=== PATIENT | female | born 1970 | race Caucasian/White ===

== ENCOUNTER 2018-04-16 10:26 | Emergency (ER) | payer BC ==
[2018-04-16] MEDS ORDERED: DICYCLOMINE 10 MG/ML 2 ML AMP IM STA (10:54)
[2018-04-16] MEDS ORDERED: SODIUM CHLORIDE 0.9% 1,000 ML IV STA (10:54)
[2018-04-16] MEDS ORDERED: KETOROLAC 30 MG/ML 1 ML VIAL IVP STA (10:54)
--- NOTE | 2018-04-16 10:54 | ED ---
General Adult HPI - General Chief complaint: Abdominal Pain Stated complaint: abdominal pain Time Seen by Provider: 04/16/18 10:33 Source: patient, family, RN notes reviewed Mode of arrival: ambulatory Limitations: no limitations - History of Present Illness Initial comments: 47-year-old female with a past medical history of hypertension presents to the emergency department for a chief complaint of abdominal pain 2 days. Patient states the pain started yesterday and worsened today. Patient describes the pain as a constant, cramping pain that comes in "waves." Patient states the pain is generalized in her mid abdomen as well as upper abdomen. She states her abdomen feels somewhat distended. Patient admits to nausea but denies vomiting. Patient states she has had multiple bouts of diarrhea over the past 2 days with the last time being 2 hours ago. Patient states she is passing gas normally. Patient states this occurred again about one week ago and lasted for 2 days. Patient states at that time he was after she ate the meal containing broccoli. Patient states this has occurred about 3 times over the past few years as well. Patient denies any surgical or medical abdominal history. Patient went to urgent care today and they directed her here to the emergency department. She did receive Zofran at the urgent care. Patient has no other complaints at this time including shortness of breath, chest pain, abdominal pain, nausea or vomiting, headache, or visual changes. - Related Data Home Medications Medication Instructions Recorded Confirmed Levothyroxine Sodium [Synthroid] 175 mcg PO DAILY 04/16/18 04/16/18 Lisinopril [Prinivil] 10 mg PO DAILY 04/16/18 04/16/18 Previous Rx's Medication Instructions Recorded Ciprofloxacin HCl [Cipro] 500 mg PO Q12HR 10 Days tablet 04/16/18 Ondansetron HCl [Zofran] 4 mg PO Q8HR PRN #14 tablet 04/16/18 metroNIDAZOLE [Flagyl] 500 mg PO TID 10 Days tab 04/16/18 Allergies Allergy/AdvReac Type Severity Reaction Status Date / Time erythromycin base Allergy Unknown Verified 04/16/18 10:36 Iodinated Contrast- Oral and Allergy Unknown Verified 04/16/18 10:36 IV Dye Penicillins Allergy Unknown Verified 04/16/18 10:36 sulfamethoxazole Allergy Unknown Verified 04/16/18 10:36 [From Bactrim] trimethoprim [From Bactrim] Allergy Unknown Verified 04/16/18 10:36 Review of Systems ROS Statement: Those systems with pertinent positive or pertinent negative responses have been documented in the HPI. ROS Other: All systems not noted in ROS Statement are negative. Past Medical History Past Medical History: Hypertension, Thyroid Disorder History of Any Multi-Drug Resistant Organisms: None Reported Past Surgical History: Tubal Ligation Additional Past Surgical History / Comment(s): laminectomyx2, shoulder Past Psychological History: No Psychological Hx Reported Smoking Status: Former smoker Past Alcohol Use History: None Reported Past Drug Use History: None Reported General Exam Limitations: no limitations General appearance: alert, in no apparent distress Head exam: Present: atraumatic, normocephalic, normal inspection Eye exam: Present: normal appearance. Absent: scleral icterus, conjunctival injection ENT exam: Present: normal exam, mucous membranes moist Neck exam: Present: normal inspection, full ROM. Absent: tenderness, meningismus, lymphadenopathy Respiratory exam: Present: normal lung sounds bilaterally. Absent: respiratory distress, wheezes, rales, rhonchi, stridor Cardiovascular Exam: Present: regular rate, normal rhythm, normal heart sounds. Absent: systolic murmur, diastolic murmur, rubs, gallop, clicks GI/Abdominal exam: Present: soft, tenderness (LLQ, RUQ and LUQ tenderness.), normal bowel sounds, other (negative douglas sign, negative obturator and psoas signs). Absent: distended, guarding, rebound, rigid Neurological exam: Present: alert, oriented X3, CN II-XII intact Psychiatric exam: Present: normal affect, normal mood Course Vital Signs 04/16/18 10:29 Temperature 97.4 F L Pulse Rate 88 Respiratory 20 Rate Blood Pressure 130/83 O2 Sat by Pulse 98 Oximetry Medical Decision Making - Medical Decision Making 47-year-old female presents to the emergency department for a chief complaint of abdominal pain 2 days. Patient states similar pain also occurred for 2 days one week ago. Patient describes the pain as a constant spasming pain in her mid abdomen as well as upper abdomen. Patient also admits to nausea but denies vomiting. Patient admits to diarrhea. Patient is afebrile on presentation. On exam patient has left lower quadrant, left upper quadrant, right upper quadrant tenderness. White blood cell count 12.5. Total bilirubin 1.5. CBC and CMP otherwise unremarkable. Amylase and lipase within normal limits. Urine does not show any sign of infection. HCG negative. CT shows inflammatory change the lower pelvis adjacent to the sigmoid colon suggestive of acute diverticulitis. There is a 1.8 cm cystic structure in the left adnexa most likely related to ovarian cyst rather than small abscess. On reevaluation patient is feeling much better. Pain is decreased and patient's nausea had subsided. Discussed with patient and she would like to treat outpatient with antibiotics. She will be given Cipro and Flagyl. She was given dose here in the emergency department. She will follow up with primary care in 1-2 days. She will return if she has any worsening symptoms such as fevers or worsening pain which she is aware of. - Lab Data Result diagrams: 04/16/18 10:50 04/16/18 10:50 Lab Results 04/16/18 04/16/18 04/16/18 Range/Units 10:50 10:50 12:33 WBC 12.5 H (3.8-10.6) k/uL RBC 4.74 (3.80-5.40) m/uL Hgb 13.3 (11.4-16.0) gm/dL Hct 41.8 (34.0-46.0) % MCV 88.0 (80.0-100.0) fL MCH 28.1 (25.0-35.0) pg MCHC 31.9 (31.0-37.0) g/dL RDW 13.5 (11.5-15.5) % Plt Count 244 (150-450) k/uL Neutrophils % 85 % Lymphocytes % 8 % Monocytes % 6 % Eosinophils % 0 % Basophils % 0 % Neutrophils # 10.6 H (1.3-7.7) k/uL Lymphocytes # 1.0 (1.0-4.8) k/uL Monocytes # 0.8 (0-1.0) k/uL Eosinophils # 0.1 (0-0.7) k/uL Basophils # 0.0 (0-0.2) k/uL Sodium 139 (137-145) mmol/L Potassium 4.3 (3.5-5.1) mmol/L Chloride 106 (98-107) mmol/L Carbon Dioxide 22 (22-30) mmol/L Anion Gap 11 mmol/L BUN 11 (7-17) mg/dL Creatinine 0.79 (0.52-1.04) mg/dL Est GFR (CKD-EPI)AfAm >90 (>60 ml/min/1.73 sqM) Est GFR (CKD-EPI)NonAf 89 (>60 ml/min/1.73 sqM) Glucose 106 H (74-99) mg/dL Calcium 9.2 (8.4-10.2) mg/dL Total Bilirubin 1.5 H (0.2-1.3) mg/dL AST 27 (14-36) U/L ALT 28 (9-52) U/L Alkaline Phosphatase 72 (38-126) U/L Total Protein 7.5 (6.3-8.2) g/dL Albumin 4.2 (3.5-5.0) g/dL Amylase 46 (30-110) U/L Lipase 96 (23-300) U/L Urine Color Yellow Urine Appearance Clear (Clear) Urine pH 5.0 (5.0-8.0) Ur Specific [place] 1.014 (1.001-1.035) Urine Protein Negative (Negative) Urine Glucose (UA) Negative (Negative) Urine Ketones Negative (Negative) Urine Blood Negative (Negative) Urine Nitrite Negative (Negative) Urine Bilirubin Negative (Negative) Urine Urobilinogen <2.0 (<2.0) mg/dL Ur Leukocyte Esterase Negative (Negative) Urine HCG, Qual (Not Detectd) 04/16/18 Range/Units 12:33 WBC (3.8-10.6) k/uL RBC (3.80-5.40) m/uL Hgb (11.4-16.0) gm/dL Hct (34.0-46.0) % MCV (80.0-100.0) fL MCH (25.0-35.0) pg MCHC (31.0-37.0) g/dL RDW (11.5-15.5) % Plt Count (150-450) k/uL Neutrophils % % Lymphocytes % % Monocytes % % Eosinophils % % Basophils % % Neutrophils # (1.3-7.7) k/uL Lymphocytes # (1.0-4.8) k/uL Monocytes # (0-1.0) k/uL Eosinophils # (0-0.7) k/uL Basophils # (0-0.2) k/uL Sodium (137-145) mmol/L Potassium (3.5-5.1) mmol/L Chloride (98-107) mmol/L Carbon Dioxide (22-30) mmol/L Anion Gap mmol/L BUN (7-17) mg/dL Creatinine (0.52-1.04) mg/dL Est GFR (CKD-EPI)AfAm (>60 ml/min/1.73 sqM) Est GFR (CKD-EPI)NonAf (>60 ml/min/1.73 sqM) Glucose (74-99) mg/dL Calcium (8.4-10.2) mg/dL Total Bilirubin (0.2-1.3) mg/dL AST (14-36) U/L ALT (9-52) U/L Alkaline Phosphatase (38-126) U/L Total Protein (6.3-8.2) g/dL Albumin (3.5-5.0) g/dL Amylase (30-110) U/L Lipase (23-300) U/L Urine Color Urine Appearance (Clear) Urine pH (5.0-8.0) Ur Specific [place] (1.001-1.035) Urine Protein (Negative) Urine Glucose (UA) (Negative) Urine Ketones (Negative) Urine Blood (Negative) Urine Nitrite (Negative) Urine Bilirubin (Negative) Urine Urobilinogen (<2.0) mg/dL Ur Leukocyte Esterase (Negative) Urine HCG, Qual Not Detected (Not Detectd) Disposition Clinical Impression: Diverticulitis Disposition: HOME SELF-CARE Condition: Good Instructions: Diverticulitis (ED) Additional Instructions: Please take antibiotics as directed. Take Zofran for nausea as needed. Follow- up with primary care in 1-2 days. Return if you have any worsening symptoms. Prescriptions: Ciprofloxacin HCl [Cipro] 500 mg PO Q12HR 10 Days tablet metroNIDAZOLE [Flagyl] 500 mg PO TID 10 Days tab Ondansetron HCl [Zofran] 4 mg PO Q8HR PRN #14 tablet PRN Reason: Nausea Is patient prescribed a controlled substance at d/c from ED?: No Referrals: Abel Ocampo DO [Primary Care Provider] - 1-2 days Time of Disposition: 12:59
[2018-04-16] MEDS ORDERED: FAMOTIDINE 20 MG/2 ML VIAL IV STA (11:13)
[2018-04-16] MEDS ORDERED: diphenhydrAMINE 50 MG/ML 1 ML VIAL IVP STA (11:14)
[2018-04-16] MEDS ORDERED: methylPREDNISolone SOD SUCCI 125 MG/2 ML VIAL IV STA (11:15)
[2018-04-16 11:24] LABS: ALT 28 U/L (9-52); AST 27 U/L (14-36); Albumin 4.2 g/dL (3.5-5.0); Alkaline Phosphatase 72 U/L (38-126); Amylase 46 U/L (30-110); Anion Gap 11 mmol/L; Blood Urea Nitrogen 11 mg/dL (7-17); Calcium 9.2 mg/dL (8.4-10.2); Carbon Dioxide 22 mmol/L (22-30); Chloride 106 mmol/L (98-107); Glucose 106 mg/dL (74-99); Lipase 96 U/L (23-300); Potassium 4.3 mmol/L (3.5-5.1); Sodium 139 mmol/L (137-145); Total Bilirubin 1.5 mg/dL (0.2-1.3); Total Protein 7.5 g/dL (6.3-8.2)
[2018-04-16 11:27] LABS: Basophils % (A) 0 %; Eosinophils # (A) 0.1 k/uL (0-0.7); Eosinophils % (A) 0 %; HCT 41.8 % (34.0-46.0); HGB 13.3 gm/dL (11.4-16.0); Lymphocytes % (A) 8 %; MCH 28.1 pg (25.0-35.0); MCHC 31.9 g/dL (31.0-37.0); Mean Platelet Volume 6.3; Monocytes # (A) 0.8 k/uL (0-1.0); Monocytes % (A) 6 %; Neutrophils # (A) 10.6 k/uL (1.3-7.7); Neutrophils % (A) 85 %; Platelet Count 244 k/uL (150-450); RBC 4.74 m/uL (3.80-5.40); RDW 13.5 % (11.5-15.5); WBC 12.5 k/uL (3.8-10.6)
[2018-04-16] MEDS ORDERED: METOCLOPRAMIDE 5 MG/ML 2 ML VIAL IVP STA (12:33)
--- NOTE | 2018-04-16 12:33 | CT ---
EXAMINATION TYPE: CT abdomen pelvis w con DATE OF EXAM: 04/16/2018 COMPARISON: None HISTORY: Upper abd pain, nausea CT DLP: 1788.7 mGycm Automated exposure control for dose reduction was used. CONTRAST: CT scan of the abdomen pelvis is performed with IV Contrast, patient injected with 100 mL of Isovue 3 00. FINDINGS- exam limited by motion artifact. LUNG BASES-groundglass changes posteriorly most typical of atelectasis.. LIVER/GB- No gross abnormality is appreciated. PANCREAS- No gross abnormality is seen. SPLEEN- No gross abnormality is seen. ADRENALS- No gross abnormality is seen. KIDNEYS/BLADDER- no hydronephrosis nephrolithiasis or renal mass. BOWEL-the appendix is not seen. There is inflammatory change within the lower pelvis with a large div erticula in a pattern suggestive of acute diverticulitis. Trace amount of fluid is seen in the pelvis . LYMPH NODES- No greater than 1cm abdominal or pelvic lymph nodes areappreciated. OSSEOUS STRUCTURES-degenerative change of the vertebral column. Sclerotic density L4 nonspecific.. OTHER- cystic structure in the pelvis likely related to ovarian cyst rather than abscess could be co rrelated with pelvic ultrasound. Fat-containing periumbilical hernia noted. IMPRESSION- 1. Inflammatory change in the lower pelvis adjacent to the sigmoid colon suggestive of acute divertic ulitis. 1.8 cm cystic structure in the left adnexa most likely related to ovarian cyst rather than sm all abscess and could be followed on a short-term basis or confirmation.
[2018-04-16 12:41] LABS: Appearance,Urine Clear (Clear); Bilirubin,Urine Negative (Negative); Blood,Urine Negative (Negative); Color,Urine Yellow; Glucose,Urine (UA) Negative (Negative); Ketones,Urine Negative (Negative); Leukocyte Esterase,Urine Negative (Negative); Nitrite,Urine Negative (Negative); Protein,Urine Negative (Negative); Specific Gravity,Urine 1.014 (1.001-1.035); Urobilinogen,Urine <2.0 mg/dL (<2.0)
[2018-04-16] MEDS ORDERED: CIPROFLOXACIN HCL 500 MG TAB PO STA (13:10)
[2018-04-16] MEDS ORDERED: metroNIDAZOLE 500 MG TAB PO STA (13:10)
[2018-04-16 13:50] VITALS: BP 124/85; PULSE 69; RESP 18; TEMP 97
== END 2018-04-16 13:32 | disposition home or self-care (01) ==
LOC: EC 10:26
DX: K57.92 Diverticulitis of intestine, part unspecified, without perforation or abscess without bleeding (principal); E07.9 Disorder of thyroid, unspecified; I10 Essential (primary) hypertension; Z79.899 Other long term (current) drug therapy; Z88.0 Allergy status to penicillin; Z88.1 Allergy status to other antibiotic agents; Z88.2 Allergy status to sulfonamides; Z91.041 Radiographic dye allergy status
CPT/HCPCS: 36415; 93005; 80053; 82150; 83690; 85025; 81003; 81025; 87040; 74177; 99284; 96374; 96375 ×4; 96361; 96372; J1200; J0500; J2765; J2930; J1885; Q9967

== ENCOUNTER 2022-04-20 21:12 | Emergency (ER) | payer BC ==
[2022-04-20] MEDS ORDERED: SODIUM CHLORIDE 0.9% 1,000 ML IV STA ×2 (21:28→22:48)
[2022-04-20] MEDS ORDERED: ONDANSETRON 4 MG/2 ML VIAL IVP STA ×2 (21:28→23:41)
[2022-04-20] MEDS ORDERED: HYDROmorphone 1 MG/ML 1 ML SYRINGE IVP STA (21:28)
--- NOTE | 2022-04-20 21:31 | ED ---
Abdominal Pain HPI - General Stated Complaint: Abdominal and back pain Time Seen by Provider: 04/20/22 21:17 Source: RN notes reviewed - History of Present Illness Initial Comments: This is a pleasant 51-year-old female history of hypertension. She presents to the emergency department today complaining of upper abdominal pain. Patient states that she noticed about 3 weeks ago she started getting some GI problems after she was tripped over an [place]. This may be just a temporal relationship. States for the last week she has had intermittent abdominal pain, mostly in the epigastric and right upper quadrant area. She states it seemed to start in the abdomen now radiates through to the back. Patient states that bumps in the car seemed to exacerbate the pain. She has had nausea with some dry heaves. No actual vomiting. No changes in balance urination. No known fever. Patient states her last meal was repeated about jelly sandwich at about 4:30 PM. She started getting pain at about 6:15 PM. Pain worse today than it has been. No headache, no fever or chills, no changes in vision or hearing, no sore throat or difficulty with speech, no neck pain, no chest pain or shortness of breath, , no changes in urination or bowel movements, no numbness or tingling, no extremity pain, no skin rashes or lesions. Past medical, surgical, social, and family history reviewed. Noted the patient is hypertensive and admittedly has not taken her blood pressure medication for 4 days. MD Complaint: abdominal pain - Related Data Home Medications Medication Instructions Recorded Confirmed Levothyroxine Sodium [Synthroid] 175 mcg PO DAILY 04/16/18 04/16/18 lisinopriL [Prinivil] 10 mg PO DAILY 04/16/18 04/16/18 Previous Rx's Medication Instructions Recorded Ciprofloxacin HCl [Cipro] 500 mg PO Q12HR 10 Days tablet 04/16/18 metroNIDAZOLE [Flagyl] 500 mg PO TID 10 Days tab 04/16/18 ondansetron HCL [Zofran] 4 mg PO Q8HR PRN #14 tablet 04/16/18 Allergies Allergy/AdvReac Type Severity Reaction Status Date / Time erythromycin base Allergy Unknown Verified 04/20/22 21:29 Iodinated Contrast Media Allergy Unknown Verified 04/20/22 21:29 [Iodinated Contrast- Oral and IV Dye] Penicillins Allergy Unknown Verified 04/20/22 21:29 sulfamethoxazole Allergy Unknown Verified 04/20/22 21:29 [From Bactrim] trimethoprim [From Bactrim] Allergy Unknown Verified 04/20/22 21:29 Review of Systems ROS Statement: Those systems with pertinent positive or pertinent negative responses have been documented in the HPI. ROS Other: All systems not noted in ROS Statement are negative. Past Medical History Past Medical History: Hypertension, Thyroid Disorder History of Any Multi-Drug Resistant Organisms: None Reported Past Surgical History: Tubal Ligation Additional Past Surgical History / Comment(s): laminectomyx2, shoulder Past Psychological History: No Psychological Hx Reported Past Alcohol Use History: None Reported Past Drug Use History: None Reported General Exam - General Exam Comments Initial Comments: Patient appears to be in distress, however does not appear to be ill or toxic. Appears to be adequately hydrated. Good skin color, no mottling, capillary refill less than 2 seconds General appearance: alert, in distress Head exam: Present: atraumatic, normocephalic, normal inspection Eye exam: Present: normal appearance, PERRL, EOMI. Absent: scleral icterus, conjunctival injection, periorbital swelling ENT exam: Present: normal exam, mucous membranes moist Neck exam: Present: normal inspection. Absent: tenderness, meningismus, lymphadenopathy Respiratory exam: Present: normal lung sounds bilaterally. Absent: respiratory distress, wheezes, rales, rhonchi, stridor Cardiovascular Exam: Present: regular rate, normal rhythm, normal heart sounds. Absent: systolic murmur, diastolic murmur, rubs, gallop, clicks GI/Abdominal exam: Present: soft, tenderness (Tenderness in the upper abdomen both in the epigastrium and right upper quadrant), diminished bowel sounds. Absent: distended, guarding, rebound, rigid Extremities exam: Present: normal inspection, full ROM, normal capillary refill. Absent: tenderness, pedal edema, joint swelling, calf tenderness Back exam: Present: normal inspection Neurological exam: Present: alert, oriented X3, CN II-XII intact Psychiatric exam: Present: normal affect, normal mood Skin exam: Present: warm, dry, intact, normal color. Absent: rash Course Vital Signs 04/20/22 04/20/22 21:29 22:39 Temperature 98.3 F Pulse Rate 70 Respiratory 22 20 Rate Blood Pressure 168/113 Blood Pressure 139/89 [Right Arm] O2 Sat by Pulse 98 96 Oximetry - Reevaluation(s) Reevaluation #1: 04/20/22 23:44 Medical record is reviewed Symptoms are improved here in the emergency departmentpatient still having some nausea. Patient is informed of results and questions answered Patient in mild distress Reevaluation #2: 04/21/22 01:08 Patient reevaluated has pain returning in the right upper quadrant. - Consultations Consultation #1: Call placed for on-call surgery. Consultation #2: Discussed the case in detail with the on-call surgeon, Dr. Bermudez, who recommends transfer to a tertiary facility where gastroenterology can be involved in the caseshe was concerned about the significant elevation of the transaminase levels. Medical Decision Making - Medical Decision Making Given the patient's symptomology, I believe gallbladder disease is #1 on the differential. However pancreatitis and other intra-abdominal pathology possib le. Does not appear to be consistent with cardiopulmonary disease. Patient's, but her ultrasound shows multiple gallstones with no evidence of wall thickening. Bilirubin is normal however the patient had significant elevation of the transaminases. Case was discussed in detail with the on-call surgeon who requested transfer of the patient for gastroenterology involvement. We have no GI coverage at this time. He stated that due to the significant elevation of the liver enzymes gastroenterology should be involved in the case. Case discussed with Dr. Kan at [facility] with subsequent transfer the patient The case was discussed in detail with ED attending physician. Presentation, findings, treatment plan discussed in detail. Cryptographic Vulnerability Analyst Dr. Ulloa - Lab Data Result diagrams: 04/20/22 21:36 04/20/22 21:36 Lab Results 04/20/22 04/20/22 04/20/22 Range/Units 21:36 21:36 21:36 WBC 10.8 H (3.8-10.6) k/uL RBC 4.91 (3.80-5.40) m/uL Hgb 16.0 (11.4-16.0) gm/dL Hct 46.9 H (34.0-46.0) % MCV 95.6 (80.0-100.0) fL MCH 32.6 (25.0-35.0) pg MCHC 34.1 (31.0-37.0) g/dL RDW 12.9 (11.5-15.5) % Plt Count 271 (150-450) k/uL MPV 7.4 Neutrophils % 85 % Lymphocytes % 8 % Monocytes % 4 % Eosinophils % 1 % Basophils % 0 % Neutrophils # 9.2 H (1.3-7.7) k/uL Lymphocytes # 0.9 L (1.0-4.8) k/uL Monocytes # 0.5 (0-1.0) k/uL Eosinophils # 0.1 (0-0.7) k/uL Basophils # 0.0 (0-0.2) k/uL Sodium 136 L (137-145) mmol/L Potassium 4.1 (3.5-5.1) mmol/L Chloride 100 (98-107) mmol/L Carbon Dioxide 21 L (22-30) mmol/L Anion Gap 15 mmol/L BUN 14 (7-17) mg/dL Creatinine 0.94 (0.52-1.04) mg/dL Est GFR (CKD-EPI)AfAm 80 (>60 ml/min/1.73 sqM) Est GFR (CKD-EPI)NonAf 70 (>60 ml/min/1.73 sqM) Glucose 146 H (74-99) mg/dL Lactic Ac Sepsis Rflx Plasma Lactic Acid Fredi 2.7 H* (0.7-2.0) mmol/L Calcium 9.6 (8.4-10.2) mg/dL Total Bilirubin 1.2 (0.2-1.3) mg/dL AST 499 H (14-36) U/L ALT 246 H (4-34) U/L Alkaline Phosphatase 134 H (38-126) U/L Troponin I (0.000-0.034) ng/mL Total Protein 8.0 (6.3-8.2) g/dL Albumin 5.0 (3.5-5.0) g/dL Amylase 56 (30-110) U/L Lipase 266 (23-300) U/L Urine Color Urine Appearance (Clear) Urine pH (5.0-8.0) Ur Specific [place] (1.001-1.035) Urine Protein (Negative) Urine Glucose (UA) (Negative) Urine Ketones (Negative) Urine Blood (Negative) Urine Nitrite (Negative) Urine Bilirubin (Negative) Urine Urobilinogen (<2.0) mg/dL Ur Leukocyte Esterase (Negative) Urine RBC (0-5) /hpf Urine WBC (0-5) /hpf Ur Squamous Epith Cells (0-4) /hpf Urine Bacteria (None) /hpf Urine Mucus (None) /hpf Urine HCG, Qual (Not Detectd) 04/20/22 04/20/22 04/20/22 Range/Units 21:36 21:36 21:36 WBC (3.8-10.6) k/uL RBC (3.80-5.40) m/uL Hgb (11.4-16.0) gm/dL Hct (34.0-46.0) % MCV (80.0-100.0) fL MCH (25.0-35.0) pg MCHC (31.0-37.0) g/dL RDW (11.5-15.5) % Plt Count (150-450) k/uL MPV Neutrophils % % Lymphocytes % % Monocytes % % Eosinophils % % Basophils % % Neutrophils # (1.3-7.7) k/uL Lymphocytes # (1.0-4.8) k/uL Monocytes # (0-1.0) k/uL Eosinophils # (0-0.7) k/uL Basophils # (0-0.2) k/uL Sodium (137-145) mmol/L Potassium (3.5-5.1) mmol/L Chloride (98-107) mmol/L Carbon Dioxide (22-30) mmol/L Anion Gap mmol/L BUN (7-17) mg/dL Creatinine (0.52-1.04) mg/dL Est GFR (CKD-EPI)AfAm (>60 ml/min/1.73 sqM) Est GFR (CKD-EPI)NonAf (>60 ml/min/1.73 sqM) Glucose (74-99) mg/dL Lactic Ac Sepsis Rflx Plasma Lactic Acid Fredi (0.7-2.0) mmol/L Calcium (8.4-10.2) mg/dL Total Bilirubin (0.2-1.3) mg/dL AST (14-36) U/L ALT (4-34) U/L Alkaline Phosphatase (38-126) U/L Troponin I <0.012 (0.000-0.034) ng/mL Total Protein (6.3-8.2) g/dL Albumin (3.5-5.0) g/dL Amylase (30-110) U/L Lipase (23-300) U/L Urine Color Yellow Urine Appearance Cloudy H (Clear) Urine pH 6.5 (5.0-8.0) Ur Specific [place] 1.015 (1.001-1.035) Urine Protein Negative (Negative) Urine Glucose (UA) Negative (Negative) Urine Ketones Negative (Negative) Urine Blood Negative (Negative) Urine Nitrite Negative (Negative) Urine Bilirubin Negative (Negative) Urine Urobilinogen <2.0 (<2.0) mg/dL Ur Leukocyte Esterase Trace H (Negative) Urine RBC 1 (0-5) /hpf Urine WBC 1 (0-5) /hpf Ur Squamous Epith Cells 4 (0-4) /hpf Urine Bacteria Few H (None) /hpf Urine Mucus Rare H (None) /hpf Urine HCG, Qual Not Detected (Not Detectd) 04/20/22 Range/Units 22:35 WBC (3.8-10.6) k/uL RBC (3.80-5.40) m/uL Hgb (11.4-16.0) gm/dL Hct (34.0-46.0) % MCV (80.0-100.0) fL MCH (25.0-35.0) pg MCHC (31.0-37.0) g/dL RDW (11.5-15.5) % Plt Count (150-450) k/uL MPV Neutrophils % % Lymphocytes % % Monocytes % % Eosinophils % % Basophils % % Neutrophils # (1.3-7.7) k/uL Lymphocytes # (1.0-4.8) k/uL Monocytes # (0-1.0) k/uL Eosinophils # (0-0.7) k/uL Basophils # (0-0.2) k/uL Sodium (137-145) mmol/L Potassium (3.5-5.1) mmol/L Chloride (98-107) mmol/L Carbon Dioxide (22-30) mmol/L Anion Gap mmol/L BUN (7-17) mg/dL Creatinine (0.52-1.04) mg/dL Est GFR (CKD-EPI)AfAm (>60 ml/min/1.73 sqM) Est GFR (CKD-EPI)NonAf (>60 ml/min/1.73 sqM) Glucose (74-99) mg/dL Lactic Ac Sepsis Rflx Y Plasma Lactic Acid Fredi (0.7-2.0) mmol/L Calcium (8.4-10.2) mg/dL Total Bilirubin (0.2-1.3) mg/dL AST (14-36) U/L ALT (4-34) U/L Alkaline Phosphatase (38-126) U/L Troponin I (0.000-0.034) ng/mL Total Protein (6.3-8.2) g/dL Albumin (3.5-5.0) g/dL Amylase (30-110) U/L Lipase (23-300) U/L Urine Color Urine Appearance (Clear) Urine pH (5.0-8.0) Ur Specific [place] (1.001-1.035) Urine Protein (Negative) Urine Glucose (UA) (Negative) Urine Ketones (Negative) Urine Blood (Negative) Urine Nitrite (Negative) Urine Bilirubin (Negative) Urine Urobilinogen (<2.0) mg/dL Ur Leukocyte Esterase (Negative) Urine RBC (0-5) /hpf Urine WBC (0-5) /hpf Ur Squamous Epith Cells (0-4) /hpf Urine Bacteria (None) /hpf Urine Mucus (None) /hpf Urine HCG, Qual (Not Detectd) - EKG Data EKG Comments: 2118 and reviewed by the ED attending physician reveals sinus rhythm with a rate of 66. Normal intervals otherwise. Normal axis. Baseline artifact. Some evidence of poor R-wave progression. Possible T-wave flattening in V4, V5, and V6. When compared to previous study from 2018, other than the lateral T waves, no other acute findings. This also may be related to low voltage. - Radiology Data Radiology results: report reviewed, image reviewed Disposition Clinical Impression: Upper abdominal pain, Cholelithiasis, Biliary colic, Uncontrolled hypertension, Elevated transaminase level Narrative: Possible early cholecystitis with intractable pain and nausea Disposition: OTHER INSTITUTION NOT DEFINED Condition: Fair Time of Disposition: 00:03 Decision to Admit Reason: Admit from [facility] Decision Time: 00:03 - Out of Hospital Transfer - Req. Specs Out of Hospital Transfer - Requested Specifics: Other Emergency Center
[2022-04-20 21:38] VITALS: TEMP 98.3
[2022-04-20 22:01] LABS: Basophils % (A) 0 %; Eosinophils # (A) 0.1 k/uL (0-0.7); Eosinophils % (A) 1 %; HCT 46.9 % (34.0-46.0); Lymphocytes # (A) 0.9 k/uL (1.0-4.8); Lymphocytes % (A) 8 %; MCH 32.6 pg (25.0-35.0); MCHC 34.1 g/dL (31.0-37.0); MCV 95.6 fL (80.0-100.0); Mean Platelet Volume 7.4; Monocytes # (A) 0.5 k/uL (0-1.0); Monocytes % (A) 4 %; Neutrophils # (A) 9.2 k/uL (1.3-7.7); Neutrophils % (A) 85 %; Platelet Count 271 k/uL (150-450); RBC 4.91 m/uL (3.80-5.40); RDW 12.9 % (11.5-15.5); WBC 10.8 k/uL (3.8-10.6)
--- NOTE | 2022-04-20 22:17 | XR ---
EXAMINATION TYPE: XR abdomen acute w cxr DATE OF EXAM: 04/20/2022 COMPARISON: NONE HISTORY: Pain TECHNIQUE: 4 views FINDINGS: Heart and mediastinum are normal. Lungs are clear. Diaphragm is normal. Bony thorax appears normal. The bowel gas pattern is normal. No sign of intestinal obstruction or pneumoperitoneum. Feca l pattern is normal. No pathologic calcifications over the kidneys. There are phleboliths in the pelv is on the left side. IMPRESSION: Normal chest. Nonacute abdomen.
[2022-04-20 22:20] LABS: Appearance,Urine Cloudy (Clear); Bacteria,Urine Few /hpf; Bilirubin,Urine Negative (Negative); Blood,Urine Negative (Negative); Color,Urine Yellow; Glucose,Urine (UA) Negative (Negative); Ketones,Urine Negative (Negative); Leukocyte Esterase,Urine Trace (Negative); Mucus,Urine Rare /hpf; Nitrite,Urine Negative (Negative); PH, Urine 6.5 (5.0-8.0); Protein,Urine Negative (Negative); RBC,Urine 1 /hpf (0-5); Specific Gravity,Urine 1.015 (1.001-1.035); Squamous Epithelial Cell,Urine 4 /hpf (0-4); Urobilinogen,Urine <2.0 mg/dL (<2.0); WBC,Urine 1 /hpf (0-5)
[2022-04-20 22:22] LABS: Calcium 9.6 mg/dL (8.4-10.2); Potassium 4.1 mmol/L (3.5-5.1); Total Bilirubin 1.2 mg/dL (0.2-1.3)
[2022-04-20] MEDS ORDERED: KETOROLAC 15 MG/ML 1 ML VIAL IVP STA (22:26)
[2022-04-20] MEDS ORDERED: metroNIDAZOLE-NS PMX 500 MG in SALINE 1 100ML.BAG IVPB STA (22:51)
[2022-04-20] MEDS ORDERED: LEVOFLOXACIN 750MG-D5W PMX 750 MG in DEXTROSE/WATER 1 150ML.BAG IVPB STA (22:51)
--- NOTE | 2022-04-20 23:34 | US ---
EXAMINATION TYPE: US gallbladder DATE OF EXAM: 04/20/2022 COMPARISON: NONE CLINICAL HISTORY: Upper abdominal pain. RUQ pain, n/v today TECHNIQUE: Multiple sonographic images of the right upper quadrant are obtained. FINDINGS: EXAM MEASUREMENTS: Liver Length: 16.1 cm Gallbladder Wall: 0.27 cm CBD: 0.47 cm Right Kidney: 10.5 x 4.7 x 5.2 cm RODEO CLOWN NOTES: Pancreas: wnl Liver: heterogeneous Gallbladder: multiple gallstones visualized Evidence for sonographic Batista's sign: no CBD: wnl Right Kidney: wnl IMPRESSION: There are numerous gallstones. No dilated ducts. No gallbladder wall thickening. No focal liver defec t.
[2022-04-21] MEDS ORDERED: HYDROmorphone 1 MG/ML 1 ML SYRINGE IVP STA (01:14)
[2022-04-21] MEDS ORDERED: FAMOTIDINE 20 MG/2 ML VIAL IV STA (01:27)
[2022-04-21 01:58] VITALS: BP 133/67; PULSE 74; RESP 15
== END 2022-04-21 02:01 | disposition other institution (70) ==
LOC: EC 21:12
DX: K80.50 Calculus of bile duct without cholangitis or cholecystitis without obstruction (principal); I10 Essential (primary) hypertension; E07.9 Disorder of thyroid, unspecified; Z79.899 Other long term (current) drug therapy; Z88.6 Allergy status to analgesic agent; Z91.041 Radiographic dye allergy status; Z88.0 Allergy status to penicillin; Z88.2 Allergy status to sulfonamides; Z88.8 Allergy status to other drugs, medicaments and biological substances
CPT/HCPCS: 99285; 96365; 96361; 36415; 93005; 80053; 82150; 83605; 83690; 84484; 85025; 81001; 81025; 87040; 74022; 76705; 96375; 96376; J2405; J1170 ×2; J1885

== ENCOUNTER 2022-05-10 01:48 | Observation (INO) | payer BC ==
[2022-05-10] MEDS ORDERED: SODIUM CHLORIDE 0.9% 1,000 ML IV STA (02:01)
[2022-05-10] MEDS ORDERED: ONDANSETRON 4 MG/2 ML VIAL IVP STA (02:01)
[2022-05-10 02:12] LABS: Basophils # (A) 0.1 k/uL (0-0.2); Basophils % (A) 1 %; Eosinophils # (A) 0.1 k/uL (0-0.7); Eosinophils % (A) 1 %; HCT 44.4 % (34.0-46.0); Lymphocytes # (A) 0.8 k/uL (1.0-4.8); Lymphocytes % (A) 9 %; MCH 31.6 pg (25.0-35.0); MCHC 33.9 g/dL (31.0-37.0); MCV 93.2 fL (80.0-100.0); Mean Platelet Volume 7.9; Monocytes # (A) 0.5 k/uL (0-1.0); Monocytes % (A) 5 %; Neutrophils # (A) 7.7 k/uL (1.3-7.7); Neutrophils % (A) 84 %; Platelet Count 193 k/uL (150-450); RBC 4.76 m/uL (3.80-5.40); RDW 12.8 % (11.5-15.5); WBC 9.2 k/uL (3.8-10.6)
[2022-05-10 02:30] LABS: Albumin 4.8 g/dL (3.5-5.0); Calcium 9.6 mg/dL (8.4-10.2); Total Bilirubin 1.7 mg/dL (0.2-1.3); Total Protein 7.8 g/dL (6.3-8.2)
[2022-05-10] MEDS ORDERED: METOCLOPRAMIDE 5 MG/ML 2 ML VIAL IVP STA (03:17)
[2022-05-10] MEDS ORDERED: diphenhydrAMINE 50 MG/ML 1 ML VIAL IVP STA (03:17)
[2022-05-10] MEDS ORDERED: HYDROmorphone 1 MG/ML 1 ML SYRINGE IVP STA (03:18)
[2022-05-10 04:58] LABS: Appearance,Urine Clear (Clear); Bilirubin,Urine Negative (Negative); Blood,Urine Negative (Negative); Color,Urine Yellow; Glucose,Urine (UA) Negative (Negative); Ketones,Urine Negative (Negative); Leukocyte Esterase,Urine Negative (Negative); Nitrite,Urine Negative (Negative); Protein,Urine Negative (Negative); Specific Gravity,Urine 1.017 (1.001-1.035)
[2022-05-10] MEDS ORDERED: NALOXONE 0.4 MG/ML 1 ML VIAL IV PRN (05:16)
--- NOTE | 2022-05-10 05:16 | ED ---
General Adult HPI - General Chief complaint: Nausea/Vomiting/Diarrhea Stated complaint: vomiting Time Seen by Provider: 05/10/22 01:59 Source: EMS Mode of arrival: EMS - History of Present Illness Initial comments: 51-year-old female with past medical history of hypothyroid and hypertension presents emergency room with right upper quadrant abdominal pain. Patient was seen in the emergency department on the eighth for similar complaints. She was found to have cholelithiasis. Her liver enzymes were elevated and therefore she was transferred to [facility] as we did not have GI specialty. She reports that her liver enzymes peaked into the thousands. She had no further intervention from a GI standpoint. She was told that she had mono at some point however denied that she had acute mono. They performed a CT of her abdomen. Denied that she had choledocholithiasis. Did not feel that the patient needed a HIDA scan, ERCP or MRCP. Patient was discharged from the facility and reports that her liver enzymes were in the 400s. She has had continued intermittent pain w ith eating. Tonight the patient had chicken wings and states that immediately after she ate them she began having right upper quadrant pain with nausea. Patient had 4 episodes of vomiting. No fevers. No sick contacts. Denies ripping or tearing sensation to her back. No chest pain or shortness of breath. No other alleviating, precipitating or modifying factors - Related Data Home Medications Medication Instructions Recorded Confirmed Cetirizine HCl [Zyrtec] 10 mg PO DAILY PRN 05/10/22 05/10/22 Levothyroxine Sodium [Synthroid] 200 mcg PO DAILY 05/10/22 05/10/22 Losartan [Cozaar] 25 mg PO W/SUPPER 05/10/22 05/10/22 Pantoprazole [Protonix] 40 mg PO W/SUPPER 05/10/22 05/10/22 Sertraline [Zoloft] 50 mg PO W/SUPPER 05/10/22 05/10/22 Allergies Allergy/AdvReac Type Severity Reaction Status Date / Time erythromycin base Allergy Unknown Verified 05/10/22 07:10 Iodinated Contrast Media Allergy Unknown Verified 05/10/22 07:10 [Iodinated Contrast- Oral and IV Dye] Penicillins Allergy Unknown Verified 05/10/22 07:10 sulfamethoxazole Allergy Unknown Verified 05/10/22 07:10 [From Bactrim] trimethoprim [From Bactrim] Allergy Unknown Verified 05/10/22 07:10 Review of Systems ROS Statement: Those systems with pertinent positive or pertinent negative responses have been documented in the HPI. ROS Other: All systems not noted in ROS Statement are negative. Past Medical History Past Medical History: Hypertension, Thyroid Disorder History of Any Multi-Drug Resistant Organisms: None Reported Past Surgical History: Tubal Ligation Additional Past Surgical History / Comment(s): laminectomyx2, shoulder Past Psychological History: No Psychological Hx Reported Past Alcohol Use History: None Reported Past Drug Use History: None Reported - Past Family History Mother Family Medical History: No Reported History Additional Family Medical History / Comment(s): Mother is 86 and is healthy Father Family Medical History: Coronary Artery Disease (CAD), Diabetes Mellitus, Hypertension Additional Family Medical History / Comment(s): Father is 80 years old General Exam General appearance: alert, in no apparent distress Head exam: Present: atraumatic, normocephalic, normal inspection Eye exam: Present: normal appearance, PERRL, EOMI. Absent: scleral icterus, conjunctival injection, periorbital swelling ENT exam: Present: normal exam, mucous membranes moist Neck exam: Present: normal inspection. Absent: tenderness, meningismus, lymphadenopathy Respiratory exam: Present: normal lung sounds bilaterally. Absent: respiratory distress, wheezes, rales, rhonchi, stridor Cardiovascular Exam: Present: regular rate, normal rhythm, normal heart sounds. Absent: systolic murmur, diastolic murmur, rubs, gallop, clicks GI/Abdominal exam: Present: soft, tenderness (ruq), normal bowel sounds. Absent: distended, guarding, rebound, rigid Extremities exam: Present: normal inspection, full ROM, normal capillary refill. Absent: tenderness, pedal edema, joint swelling, calf tenderness Back exam: Present: normal inspection Neurological exam: Present: alert, oriented X3, CN II-XII intact Psychiatric exam: Present: normal affect, normal mood Skin exam: Present: warm, dry, intact, normal color. Absent: rash Course Vital Signs 05/10/22 05/10/22 05/10/22 02:15 06:52 07:00 Temperature 98.5 F 97.9 F Pulse Rate 89 82 Pulse Rate [ 57 L Right] Respiratory 15 15 16 Rate Blood Pressure 144/87 139/73 Blood Pressure 142/83 [Right Arm] O2 Sat by Pulse 98 97 98 Oximetry Medical Decision Making - Medical Decision Making Upon arrival patient was placed into room 1. Thorough history and physical exam is performed. IV access was established by EMS. She had been given 4 mg of Zofran without any improvement in her symptoms. I did give the patient dose of Reglan, Benadryl and Dilaudid. Laboratory studies are completed which demonstrate an AST of 143, ALTs of 127. Bilirubin 1.7. The labs are markedly improved. Ultrasound is ordered for the morning. I did call and speek with Dr. Burnham who was agreeable to admit the patient with GI consult. She agreed to this plan and is awaiting a bed on the floor in stable condition - Lab Data Result diagrams: 05/11/22 06:10 05/11/22 06:14 Lab Results 05/10/22 05/10/22 05/10/22 Range/Units 02:05 02:05 02:05 WBC 9.2 (3.8-10.6) k/uL RBC 4.76 (3.80-5.40) m/uL Hgb 15.0 (11.4-16.0) gm/dL Hct 44.4 (34.0-46.0) % MCV 93.2 (80.0-100.0) fL MCH 31.6 (25.0-35.0) pg MCHC 33.9 (31.0-37.0) g/dL RDW 12.8 (11.5-15.5) % Plt Count 193 (150-450) k/uL MPV 7.9 Neutrophils % 84 % Lymphocytes % 9 % Monocytes % 5 % Eosinophils % 1 % Basophils % 1 % Neutrophils # 7.7 (1.3-7.7) k/uL Lymphocytes # 0.8 L (1.0-4.8) k/uL Monocytes # 0.5 (0-1.0) k/uL Eosinophils # 0.1 (0-0.7) k/uL Basophils # 0.1 (0-0.2) k/uL Sodium 142 (137-145) mmol/L Potassium 4.0 (3.5-5.1) mmol/L Chloride 103 (98-107) mmol/L Carbon Dioxide 24 (22-30) mmol/L Anion Gap 15 mmol/L BUN 16 (7-17) mg/dL Creatinine 0.94 (0.52-1.04) mg/dL Est GFR (CKD-EPI)AfAm 80 (>60 ml/min/1.73 sqM) Est GFR (CKD-EPI)NonAf 70 (>60 ml/min/1.73 sqM) Glucose 131 H (74-99) mg/dL Plasma Lactic Acid Fredi 1.2 (0.7-2.0) mmol/L Calcium 9.6 (8.4-10.2) mg/dL Total Bilirubin 1.7 H (0.2-1.3) mg/dL AST 143 H (14-36) U/L ALT 127 H (4-34) U/L Alkaline Phosphatase 116 (38-126) U/L Total Protein 7.8 (6.3-8.2) g/dL Albumin 4.8 (3.5-5.0) g/dL Lipase 246 (23-300) U/L Urine Color Urine Appearance (Clear) Urine pH (5.0-8.0) Ur Specific Starbuck (1.001-1.035) Urine Protein (Negative) Urine Glucose (UA) (Negative) Urine Ketones (Negative) Urine Blood (Negative) Urine Nitrite (Negative) Urine Bilirubin (Negative) Urine Urobilinogen (<2.0) mg/dL Ur Leukocyte Esterase (Negative) 05/10/22 Range/Units 04:44 WBC (3.8-10.6) k/uL RBC (3.80-5.40) m/uL Hgb (11.4-16.0) gm/dL Hct (34.0-46.0) % MCV (80.0-100.0) fL MCH (25.0-35.0) pg MCHC (31.0-37.0) g/dL RDW (11.5-15.5) % Plt Count (150-450) k/uL MPV Neutrophils % % Lymphocytes % % Monocytes % % Eosinophils % % Basophils % % Neutrophils # (1.3-7.7) k/uL Lymphocytes # (1.0-4.8) k/uL Monocytes # (0-1.0) k/uL Eosinophils # (0-0.7) k/uL Basophils # (0-0.2) k/uL Sodium (137-145) mmol/L Potassium (3.5-5.1) mmol/L Chloride (98-107) mmol/L Carbon Dioxide (22-30) mmol/L Anion Gap mmol/L BUN (7-17) mg/dL Creatinine (0.52-1.04) mg/dL Est GFR (CKD-EPI)AfAm (>60 ml/min/1.73 sqM) Est GFR (CKD-EPI)NonAf (>60 ml/min/1.73 sqM) Glucose (74-99) mg/dL Plasma Lactic Acid Fredi (0.7-2.0) mmol/L Calcium (8.4-10.2) mg/dL Total Bilirubin (0.2-1.3) mg/dL AST (14-36) U/L ALT (4-34) U/L Alkaline Phosphatase (38-126) U/L Total Protein (6.3-8.2) g/dL Albumin (3.5-5.0) g/dL Lipase (23-300) U/L Urine Color Yellow Urine Appearance Clear (Clear) Urine pH 7.0 (5.0-8.0) Ur Specific Starbuck 1.017 (1.001-1.035) Urine Protein Negative (Negative) Urine Glucose (UA) Negative (Negative) Urine Ketones Negative (Negative) Urine Blood Negative (Negative) Urine Nitrite Negative (Negative) Urine Bilirubin Negative (Negative) Urine Urobilinogen 2.0 (<2.0) mg/dL Ur Leukocyte Esterase Negative (Negative) Disposition Clinical Impression: RUQ pain, Cholelithiasis Disposition: ADMITTED IP TO THIS [facility] Condition: Stable Is patient prescribed a controlled substance at d/c from ED?: No Time of Disposition: 05:15 Decision to Admit Reason: Admit from EC Decision Date: 05/10/22 Decision Time: 05:16
--- NOTE | 2022-05-10 08:52 | US ---
EXAMINATION TYPE: US gallbladder DATE OF EXAM: 05/10/2022 COMPARISON: NONE CLINICAL HISTORY: ruq pain. TECHNIQUE: Multiple sonographic images of the right upper quadrant are obtained. FINDINGS: EXAM MEASUREMENTS: Liver Length: 12.7 cm Gallbladder Wall: 0.24 cm CBD: 0.38 cm Right Kidney: 11.3 x 4.4 x 5.3 cm Pancreas: Limited by overlying bowel gas Liver: wnl Gallbladder: Small numerous mobile echogenic foci consistent with prior exams diagnosis of gallstone s. Evidence for sonographic Batista's sign: No CBD: wnl Right Kidney: wnl IMPRESSION: Cholelithiasis.
[2022-05-10] MEDS: LEVOTHYROXINE 100 MCG TAB PO SCH (09:11)
[2022-05-10] MEDS: SODIUM CHLORIDE 0.9% 1,000 ML IV SCH ×3 (09:11→18:11)
[2022-05-10] MEDS: HYDROmorphone 1 MG/ML 1 ML SYRINGE IVP PRN ×2 (09:25→19:58)
--- NOTE | 2022-05-10 11:37 | P.GSHP ---
History of Present Illness H&P Date: 05/10/22 CHIEF COMPLAINT: Abdominal pain HISTORY OF PRESENT ILLNESS: This is a 51-year-old female who presented to the hospital with complaints of right upper quadrant abdominal pain that started last night after eating chicken wings and potatoes. Patient also was having nausea and vomiting. She reports that the pain starts in the epigastric area that radiates to the right upper quadrant. She had similar symptoms about 3 weeks ago and required a transfer to [facility]. She states that she was se en by GI service and surgical service. No surgery or procedures were completed at that time she had significantly elevated LFTs. 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 Patient denies any alcohol use. Patient does have elevated liver enzymes on admission. Her gallbladder ultrasound had shown evidence of cholelithiasis. She's being evaluated by GI service for possible choledocholithiasis. They have ordered an MRCP. Patient seen and examined with Dr. lowe PAST MEDICAL HISTORY: Hypertension, hypothyroidism PAST SURGICAL HISTORY: , laminectomy MEDICATIONS: See list. ALLERGIES: See list. SOCIAL HISTORY: No illicit drug use. REVIEW OF SYSTEMS: CONSTITUTIONAL: Denies fever or chills. HEENT: Denies blurred vision, vision changes, or eye pain. Denies hemoptysis CARDIOVASCULAR: Denies chest pain or pressure. RESPIRATORY: No shortness of breath. GASTROINTESTINAL: See HPI for pertinent findings HEMATOLOGIC: Denies bleeding disorders. GENITOURINARY: Denies any blood in urine or increased urinary frequency. SKIN: Denies pruitis. Denies rash. PHYSICAL EXAM: VITAL SIGNS: Reviewed GENERAL: Well-developed in no acute distress. HEENT: No sclera icterus. Extraocular movements grossly intact. Moist buccal mucosa. Head is atraumatic, normocephalic. No nasal drainage. ABDOMEN: Soft. Nondistended. Right upper quadrant and epigastric tenderness NEUROLOGIC: Alert and oriented. Cranial nerves II through XII grossly intact. LABORATORY DATA: WBC is 9.2 Hgb 15 platelets 193 Sodium 142 potassium is 4.0 creatinine 0.94 Glucose 131 lactic acid 1.2 Total bilirubin 1.7 AST 143 ALT 127 lipase 246 UA negative IMAGING: Gallbladder ultrasound showing cholelithiasis ASSESSMENT: 1. Cholecystitis 2. Possible choledocholithiasis 3. Elevated LFTs and total bilirubin PLAN: -GI service has ordered an MRCP -Patient will require laparoscopic cholecystectomy -Continue to monitor LFTs -keep patient NPO for now -Continue IV fluids -Continue pain medication -Continue antiemetics -Consult medicine service for medical management -GI prophylaxis Protonix and DVT prophylaxis subcu heparin Physician Micromatic Hone Operator note has been reviewed by physician. Signing provider agrees with the documented findings, assessment, and plan of care. Past Medical History Past Medical History: Hypertension, Thyroid Disorder History of Any Multi-Drug Resistant Organisms: None Reported Past Surgical History: Tubal Ligation Additional Past Surgical History / Comment(s): laminectomyx2, shoulder Past Psychological History: No Psychological Hx Reported Past Alcohol Use History: None Reported Past Drug Use History: None Reported - Past Family History Mother Family Medical History: No Reported History Additional Family Medical History / Comment(s): Mother is 86 and is healthy Father Family Medical History: Coronary Artery Disease (CAD), Diabetes Mellitus, Hypertension Additional Family Medical History / Comment(s): Father is 80 years old Medications and Allergies Home Medications Medication Instructions Recorded Confirmed Type Cetirizine HCl [Zyrtec] 10 mg PO DAILY PRN 05/10/22 05/10/22 History Levothyroxine Sodium [Synthroid] 200 mcg PO DAILY 05/10/22 05/10/22 History Losartan [Cozaar] 25 mg PO W/SUPPER 05/10/22 05/10/22 History Pantoprazole [Protonix] 40 mg PO W/SUPPER 05/10/22 05/10/22 History Sertraline [Zoloft] 50 mg PO W/SUPPER 05/10/22 05/10/22 History Allergies Allergy/AdvReac Type Severity Reaction Status Date / Time erythromycin base Allergy Unknown Verified 05/10/22 07:10 Iodinated Contrast Media Allergy Unknown Verified 05/10/22 07:10 [Iodinated Contrast- Oral and IV Dye] Penicillins Allergy Unknown Verified 05/10/22 07:10 sulfamethoxazole Allergy Unknown Verified 05/10/22 07:10 [From Bactrim] trimethoprim [From Bactrim] Allergy Unknown Verified 05/10/22 07:10 Surgical - Exam Vital Signs Temp Pulse Resp BP Pulse Ox 98.5 F 89 15 144/87 98 05/10/22 02:15 05/10/22 02:15 05/10/22 02:15 05/10/22 02:15 05/10/22 02:15 Results - Labs 05/10/22 02:05 05/10/22 02:05 Abnormal Lab Results - Last 24 Hours (Table) 05/10/22 05/10/22 Range/Units 02:05 02:05 Lymphocytes # 0.8 L (1.0-4.8) k/uL Glucose 131 H (74-99) mg/dL Total Bilirubin 1.7 H (0.2-1.3) mg/dL AST 143 H (14-36) U/L ALT 127 H (4-34) U/L Diabetes panel 05/10/22 Range/Units 02:05 Sodium 142 (137-145) mmol/L Potassium 4.0 (3.5-5.1) mmol/L Chloride 103 (98-107) mmol/L Carbon Dioxide 24 (22-30) mmol/L BUN 16 (7-17) mg/dL Creatinine 0.94 (0.52-1.04) mg/dL Glucose 131 H (74-99) mg/dL Calcium 9.6 (8.4-10.2) mg/dL AST 143 H (14-36) U/L ALT 127 H (4-34) U/L Alkaline Phosphatase 116 (38-126) U/L Total Protein 7.8 (6.3-8.2) g/dL Albumin 4.8 (3.5-5.0) g/dL Calcium panel 05/10/22 Range/Units 02:05 Calcium 9.6 (8.4-10.2) mg/dL Albumin 4.8 (3.5-5.0) g/dL Pituitary panel 05/10/22 Range/Units 02:05 Sodium 142 (137-145) mmol/L Potassium 4.0 (3.5-5.1) mmol/L Chloride 103 (98-107) mmol/L Carbon Dioxide 24 (22-30) mmol/L BUN 16 (7-17) mg/dL Creatinine 0.94 (0.52-1.04) mg/dL Glucose 131 H (74-99) mg/dL Calcium 9.6 (8.4-10.2) mg/dL Adrenal panel 05/10/22 Range/Units 02:05 Sodium 142 (137-145) mmol/L Potassium 4.0 (3.5-5.1) mmol/L Chloride 103 (98-107) mmol/L Carbon Dioxide 24 (22-30) mmol/L BUN 16 (7-17) mg/dL Creatinine 0.94 (0.52-1.04) mg/dL Glucose 131 H (74-99) mg/dL Calcium 9.6 (8.4-10.2) mg/dL Total Bilirubin 1.7 H (0.2-1.3) mg/dL AST 143 H (14-36) U/L ALT 127 H (4-34) U/L Alkaline Phosphatase 116 (38-126) U/L Total Protein 7.8 (6.3-8.2) g/dL Albumin 4.8 (3.5-5.0) g/dL
[2022-05-10] MEDS: PANTOPRAZOLE 40 MG/10 ML VIAL IVP SCH (13:06)
[2022-05-10] MEDS: ONDANSETRON 4 MG/2 ML VIAL IVP PRN ×2 (13:06→21:42)
[2022-05-10] MEDS ORDERED: SERTRALINE 50 MG TAB PO SCH (17:30)
--- NOTE | 2022-05-10 17:47 | P.CONS ---
History of Present Illness - Reason for Consult Consult date: 05/10/22 Elevated liver enzymes, cholelithiasis Requesting physician: Vanessa Hobbs - Chief Complaint abdominal pain - History of Present Illness Is a pleasant 51-year-old female who presented to the emergency department with complaints of right upper quadrant pain. Apparently she has been having the pain since earlier this month. She was seen in our emergency department with elevated LFTs, with the ultrasound showing numerous gallstones with no dilated CBD however was transferred to [facility] as there was no GI present. At that time she states that she had significant elevation in her AST and ALT, they did Allan-Bess panel and stated that she had recent exposure to Allan-Bess virus and elevation was likely related to that and they were not concerned for choledochal lithiasis. She did not undergo any MRCP, ERCP or any surgical procedures. Patient initially this feeling better however Sunday she went to a wedding and after eating started getting uncomfortable with pain in that right upper quadrant. She continued to have worsening pain yesterday with nausea and vomiting. She states she had dry heaves several times. On this admission she was noted to have elevation in her LFTs and gallbladder ultrasound showing multiple mobile stones, normal common bile duct at 0.38 cm. Patient was admitted to general surgery with gastroenterology on consult for cholelithiasis with elevated LFTs. Today patient states some abdominal pain is somewhat improved, nausea and vomiting is improved as well. She denies any fever or chills. She has been afebrile. Labs: WBC 9.2 hemoglobin 15 hematocrit 44 platelet count 193,000 sodium 142 potassium 4.0 BUN 16 creatinine 0.9 glucose 131 total bilirubin 1.7 AST 143 ALT 127 alkaline phosphatase 116 lipase 246 Review of Systems REVIEW OF SYSTEMS: CARDIOPULMONARY: No chest pain or shortness of breath. Gastrointestinal: Right upper quadrant and epigastric pain. Nausea and vomit ing. No hematemesis, coffee-ground emesis. No rectal bleeding, or melena. GENITOURINARY: No dysuria or hematuria. MUSCULOSKELETAL: Reports normal range of motion., Joint pain. SKIN: No rashes. No jaundice. ENDOCRINE: No chills, fevers. No excessive weight gain or loss. No polydipsia or polyuria. PSYCHIATRIC: Unremarkable. NEUROLOGY: No change in mental status. Denies dizziness, headache. ENT: Vision unremarkable. CONSTITUTIONAL: No recent weight loss. No fever, chills, night sweats. Past Medical History Past Medical History: Hypertension, Thyroid Disorder History of Any Multi-Drug Resistant Organisms: None Reported Past Surgical History: Back Surgery, Tubal Ligation Additional Past Surgical History / Comment(s): laminectomyx2, L rotator cuff Past Anesthesia/Blood Transfusion Reactions: No Reported Reaction Smoking Status: Never smoker - Past Family History Mother Family Medical History: No Reported History Additional Family Medical History / Comment(s): Mother is 86 and is healthy Father Family Medical History: Coronary Artery Disease (CAD), Diabetes Mellitus, Hypertension Additional Family Medical History / Comment(s): Father is 80 years old Medications and Allergies Home Medications Medication Instructions Recorded Confirmed Type Cetirizine HCl [Zyrtec] 10 mg PO DAILY PRN 05/10/22 05/10/22 History Levothyroxine Sodium [Synthroid] 200 mcg PO DAILY 05/10/22 05/10/22 History Losartan [Cozaar] 25 mg PO W/SUPPER 05/10/22 05/10/22 History Pantoprazole [Protonix] 40 mg PO W/SUPPER 05/10/22 05/10/22 History Sertraline [Zoloft] 50 mg PO W/SUPPER 05/10/22 05/10/22 History Allergies Allergy/AdvReac Type Severity Reaction Status Date / Time erythromycin base Allergy Unknown Verified 05/10/22 07:10 Iodinated Contrast Media Allergy Unknown Verified 05/10/22 07:10 [Iodinated Contrast- Oral and IV Dye] Penicillins Allergy Unknown Verified 05/10/22 07:10 sulfamethoxazole Allergy Unknown Verified 05/10/22 07:10 [From Bactrim] trimethoprim [From Bactrim] Allergy Unknown Verified 05/10/22 07:10 Physical Exam Vitals: Vital Signs Temp Pulse Pulse Resp BP BP Pulse Ox 05/10/22 07:00 97.9 F 57 L 16 142/83 98 05/10/22 06:52 82 15 139/73 97 05/10/22 02:15 98.5 F 89 15 144/87 98 Intake and Output 05/09/22 05/10/22 05/10/22 22:59 06:59 14:59 Other: Weight 90.718 kg 90.718 kg General appearance: The patient is alert, oriented, appears in no acute distress. HET: Head is normocephalic and atraumatic. Conjunctiva pink. Sclera anicteric. Neck: Supple without lymphadenopathy. Trachea midline. Heart: S1 S2. Regular rate and rhythm. Lungs: Clear to auscultation. Abdomen: Soft, right upper quadrant tenderness, nondistended with bowel sounds. No guarding or rigidity. Skin: No rashes. No jaundice. Extremities: Normal skin color and turgor. No pedal edema. Neurological: No focal deficits. Alert and oriented x3. Results CBC & Chem 7: 05/10/22 02:05 05/10/22 02:05 Labs: Abnormal Lab Results - Last 24 Hours (Table) 05/10/22 05/10/22 Range/Units 02:05 02:05 Lymphocytes # 0.8 L (1.0-4.8) k/uL Glucose 131 H (74-99) mg/dL Total Bilirubin 1.7 H (0.2-1.3) mg/dL AST 143 H (14-36) U/L ALT 127 H (4-34) U/L US - abdomen: report reviewed (Gallbladder ultrasound shows cholelithiasis. No CBD dilation.) Assessment and Plan (1) Elevated LFTs Narrative/Plan: 41-year-old female recently hospitalized for right upper quadrant pain, cholelithiasis with elevated LFTs. She was transferred to [facility] symptoms no GI present at this facility. They did not feel that there was any concern for choledocholithiasis or cholecystitis. Patient reports significantly elevated AST in ALT which gastroenterology Contributed to active Allan-Bess virus. Patient did not undergo MRCP, ERCP or any surgical intervention. This past weekend she had recurrent symptoms which worsened last night and presented to the emergency department. Patient again is showing cholelithiasis, no CBD dilation. Has mild elevation in her total bilirubin at 1.7 AST and ALT are in the 100s. Possibility of choledochal lithiasis cannot be ruled out. Would recommend MRCP for further evaluation. Gen. surgery on board. Current Visit: Yes Status: Acute Code(s): R79.89 - OTHER SPECIFIED ABNORMAL FINDINGS OF BLOOD CHEMISTRY SNOMED Code(s): 220254037 (2) Cholelithiasis Current Visit: Yes Status: Acute Code(s): K80.20 - CALCULUS OF GALLBLADDER W/O CHOLECYSTITIS W/O OBSTRUCTION SNOMED Code(s): 835375807 (3) RUQ pain Current Visit: Yes Status: Acute Code(s): R10.11 - RIGHT UPPER QUADRANT PAIN SNOMED Code(s): 139622388 Plan: 1. Continue symptomatic and supportive care 2. Patient may have clear liquid diet today, nothing by mouth after midnight 3. MRCP ordered urgent 4. Daily CBC, CMP 5. Antiemetics as needed 6. Continue with recommendations from general surgery 7. Further recommendations based on clinical course Thank you for this consultation, we will continue to follow. Dr. Patrick Dowling I agree with the dictator's note, documented as a scribe by Denice Farley.
[2022-05-10] MEDS: HEPARIN SODIUM,PORCINE/PF 5,000 UNIT/0.5 ML SYRINGE SQ SCH (20:02)
[2022-05-10] MEDS: LOSARTAN 25 MG TAB PO SCH (21:42)
[2022-05-11] MEDS: HYDROmorphone 1 MG/ML 1 ML SYRINGE IVP PRN ×4 (01:29→21:10)
[2022-05-11] MEDS: SODIUM CHLORIDE 0.9% 1,000 ML IV SCH ×3 (02:03→20:52)
[2022-05-11] MEDS: LEVOTHYROXINE 100 MCG TAB PO SCH (05:57)
[2022-05-11] MEDS: ONDANSETRON 4 MG/2 ML VIAL IVP PRN ×2 (09:04→17:32)
[2022-05-11] MEDS: PANTOPRAZOLE 40 MG/10 ML VIAL IVP SCH (09:04)
[2022-05-11] MEDS: HEPARIN SODIUM,PORCINE/PF 5,000 UNIT/0.5 ML SYRINGE SQ SCH (09:06)
[2022-05-11 09:13] LABS: African American GFR (CKD) 65.7 (60.0-200.0); Albumin 4.3 g/dL (3.8-4.9); Albumin/Globulin Ratio 1.8 (1.60-3.17); Anion Gap 10.6 mmol/L (10.00-18.00); BUN/Creat Ratio 8.1 Ratio (12.00-20.00); Calcium 9.1 mg/dL (8.7-10.3); Carbon Dioxide 26.8 mmol/L (20.0-27.5); Globulin 2.4 g/dL (1.6-3.3); Non-African American GFR(CKD) 56.7 (60.0-200.0); Potassium 4.2 mmol/L (3.5-5.5); Total Bilirubin 1.2 mg/dL (0.30-1.20); Total Protein 6.7 g/dL (6.2-8.2)
[2022-05-11 09:13] LABS: Basophils # (A) 0.05 X 10*3/uL (0.00-0.10); Basophils % (A) 1.4 %; Eosinophils # (A) 0.12 X 10*3/uL (0.04-0.35); Eosinophils % (A) 3.3 %; HCT 44.8 % (37.2-46.3); Immature Grans, Automated 0 %; Lymphocytes # (A) 1.11 X 10*3/uL (0.90-5.00); Lymphocytes % (A) 30.7 %; MCHC 33.5 g/dL (32.0-37.0); MCV 95.5 fL (80.0-97.0); Monocytes # (A) 0.37 X 10*3/uL (0.20-1.00); Monocytes % (A) 10.2 %; NRBC Per 100 WBC 0 /100 WBCS (0.0-0.0); Neutrophils # (A) 1.96 X 10*3/uL (1.80-7.70); Neutrophils % (A) 54.4 %; Platelet Count 196 X 10*3/uL (140-440); RBC 4.69 X 10*6/uL (4.10-5.20); RDW 12.7 % (11.5-14.5); WBC 3.61 X 10*3/uL (4.50-10.00)
--- NOTE | 2022-05-11 09:45 | MR ---
EXAMINATION TYPE: MR MRCP DATE OF EXAM: 05/11/2022 COMPARISON: CT abdomen and pelvis April 16, 2018. Recent gallbladder ultrasound one day earlier. HISTORY: cholelithiasis, RUQ pain. Standard multiplanar, multisequence MRI departmental protocol Multiplanar, multisequence images of the abdomen were acquired without contrast. Diffusion weighted i maging was performed. Thin and thick slice MRCP imaging performed on MRI scanner and reviewed. FINDINGS: Exam noted suboptimal as is degraded by patient inability to hold breath. Liver/gallbladder/pancreas/biliary system: Liver remains normal in size. Mild diffuse signal dropout consistent with mild diffuse fatty infiltration is present. No obvious solid or cystic mass. Multiple small dependent gallstones and gallbladder are redemonstrated. No adjacent ascites or pericholecysti c fluid. Pancreas is normal in size without solid or cystic mass. MRCP images show visualization of p ancreatic duct to the ampulla without suspicious dilatation. There is no intrahepatic or extrahepatic biliary dilatation. No CBD stone clearly seen. Other: Lung bases remain clear. The spleen and both adrenal glands appear within normal limits. No co ncerning renal mass or hydronephrosis. No intra-abdominal ascites. No bowel dilatation. Osseous struc tures are intact. IMPRESSION: Suboptimal study with motion artifact degradation. Multiple small stones in gallbladder r edemonstrated. No biliary dilatation. No CBD stone clearly seen.
[2022-05-11] MEDS: METOCLOPRAMIDE 5 MG/ML 2 ML VIAL IVP PRN ×2 (11:31→21:02)
[2022-05-11] MEDS ORDERED: ONDANSETRON 4 MG/2 ML VIAL IVP SCH (12:00)
[2022-05-11 14:13] VITALS: BMI 27.8
--- NOTE | 2022-05-11 14:28 | P.PN ---
Subjective Progress Note Date: 05/11/22 CHIEF COMPLAINT: Abdominal pain HISTORY OF PRESENT ILLNESS: Patient continues to have right upper quadrant epigastric abdominal pain. She had significant nausea and vomiting this morning. She was given Zofran and Reglan and the vomiting has finally resided. Patient is scheduled for ERCP tomorrow. She is afebrile. WBC is 3.61 hemoglobin is 15 is 196 sodium is 143 potassium 4.2 creatinine 1.1 total bilirubin is down from 1.7-1.2 AST 143 up to 186 ALT 127 up to 375 alk phos 121. MRCP suboptimal study with motion artifact. Multiple small stones and gallbladder redemonstrated. No biliary dilatation. No CBD stone was seen. Patient seen and examined with Dr. lowe PHYSICAL EXAM: VITAL SIGNS: Reviewed. GENERAL: Well-developed in no acute distress. HEENT: No sclera icterus. Extraocular movements grossly intact. Moist buccal mucosa. Head is atraumatic, normocephalic. ABDOMEN: Soft. Nondistended. Epigastric and right upper quadrant tenderness NEUROLOGIC: Alert and oriented. Cranial nerves II through XII grossly intact. ASSESSMENT: 1. Cholecystitis 2. Possible choledocholithiasis 3. Elevated LFTs and total bilirubin PLAN: -Dr. Lowe discussed case with GI service. He recommended that they proceed with ERCP. GI service has scheduled patient for ERCP tomorrow -Continue to monitor LFTs -Continue Zofran and Reglan when necessary for nausea and vomiting -Zoloft discontinued because of drug interaction with Reglan -Continue IV fluids -GI prophylaxis Protonix and subcu heparin currently on hold for ERCP tomorrow [facility] note has been reviewed by physician. Signing provider agrees with the documented findings, assessment, and plan of care. Objective - Vital Signs Vital signs: Vital Signs Temp 98.4 F 05/11/22 07:00 Pulse 65 05/11/22 07:00 Resp 18 05/11/22 07:00 BP 142/94 05/11/22 07:00 Pulse Ox 95 05/11/22 07:00 FiO2 Intake & Output 05/10/22 05/11/22 05/11/22 18:59 06:59 18:59 Intake Total 420 Balance 420 Weight 90.718 kg 90.718 kg Intake: Oral 420 Other: Voiding Method Toilet # Voids 3 3 - Labs CBC & Chem 7: 05/11/22 06:10 05/11/22 06:14 Labs: Abnormal Lab Results - Last 24 Hours (Table) 05/11/22 05/11/22 Range/Units 06:10 06:14 WBC 3.61 L (4.50-10.00) X 10*3/uL Est GFR (CKD-EPI)NonAf 56.7 L (60.0-200.0) BUN/Creatinine Ratio 8.10 L (12.00-20.00) Ratio AST 186 H (13-35) U/L ALT 375 H (8-44) U/L
[2022-05-11 16:21] LABS: INR 1.1 (<1.2); Prothrombin Time 11.4 sec (9.0-12.0)
[2022-05-11] MEDS ORDERED: NON FORMULARY DRUG (Levothyroxine Sodium [Synthroid] 200 MCG Tablet) PO SCH (16:30)
--- NOTE | 2022-05-11 16:47 | P.PN ---
Subjective Progress Note Date: 05/11/22 Principal diagnosis: Cholelithiasis This is a pleasant 51-year-old female who presented to the emergency department with complaints of right upper quadrant pain. Apparently she has been having the pain since earlier this month. She was seen in our emergency department with elevated LFTs, with the ultrasound showing numerous gallstones with no dilated CBD however was transferred to [facility] as there was no GI present. At that time she states that she had significant elevation in her AST and ALT, they did Allan-Bess panel and stated that she had recent exposure to Allan-Bess virus and elevation was likely related to that and they were not concerned for choledochal lithiasis. She did not undergo any MRCP, ERCP or any surgical procedures. Patient initially this feeling better however Sunday she went to a wedding and after eating started getting uncomfortable with pain in that right upper quadrant. She continued to have worsening pain yesterday with nausea and vomiting. She states she had dry heaves several times. On this admission she was noted to have elevation in her LFTs and gallbladder ultrasound showing multiple mobile stones, normal common bile duct at 0.38 cm. Patient was admitted to general surgery with gastroenterology on consult for cholelithiasis with elevated LFTs. 05/11/2022. Patient was seen and evaluated as follow-up. She went down for her MRCP. States this morning she seems to be more uncomfortable and not feeling as well, very nauseated. MRCP reported suboptimal study with motion artifact degradation. Multiple small stones in gallbladder redemonstrated. No biliary dilation. No CBD stone clearly seen. Total bilirubin improving today 1.2, mild elevation of AST and ALT 186, 375 respectively, alkaline phosphatase remains normal at 121. Objective - Vital Signs Vital signs: Vital Signs Temp 98.3 F 05/11/22 01:22 Pulse 53 L 05/11/22 01:22 Resp 18 05/11/22 01:22 BP 127/76 05/11/22 01:22 Pulse Ox 95 05/11/22 01:22 FiO2 Intake & Output 05/10/22 05/11/22 05/11/22 18:59 06:59 18:59 Intake Total 420 Balance 420 Weight 90.718 kg Intake: Oral 420 Other: Voiding Method Toilet # Voids 3 3 - Exam General appearance: The patient is alert, oriented, appears in no acute distress. HET: Head is normocephalic and atraumatic. Conjunctiva pink. Sclera anicteric. Neck: Supple without lymphadenopathy. Abdomen: Soft, epigastric/right upper quadrant tenderness with palpation, nondistended with bowel sounds. No guarding or rigidity. Extremities: Normal skin color and turgor. No pedal edema Skin: No rashes, no jaundice Neurological: No focal deficits. Alert and oriented -3. - Labs CBC & Chem 7: 05/11/22 06:10 05/11/22 06:14 Assessment and Plan (1) Elevated LFTs Narrative/Plan: 41-year-old female recently hospitalized for right upper quadrant pain, cholelithiasis with elevated LFTs. She was transferred to [facility] symptoms no GI present at this facility. They did not feel that there was any concern for choledocholithiasis or cholecystitis. Patient reports significantly elevated AST in ALT which gastroenterology Contributed to active Allan-Bess virus. Patient did not undergo MRCP, ERCP or any surgical intervention. This past weekend she had recurrent symptoms which worsened last night and presented to the emergency department. Patient again is showing cholelithiasis, no CBD dilation. Has mild elevation in her total bilirubin at 1.7 AST and ALT are in the 100s. Possibility of choledochal lithiasis cannot be ruled out. Would recommend MRCP for further evaluation. Gen. surgery on board. MRCP completed this morning shows no clearly seen CBD stone. There is no CBD dilation. Multiple gallstones. Gen. surgery discussed with gastroenterology still concern for possible choledocholithiasis with patient's continued pain, and mild elevation of LFTs. He is requesting patient to undergo ERCP for furth er evaluation of possible CBD stone/obstruction. This is planned for tomorrow. Current Visit: Yes Status: Acute Code(s): R79.89 - OTHER SPECIFIED ABNORMAL FINDINGS OF BLOOD CHEMISTRY SNOMED Code(s): 744260092 (2) Cholelithiasis Current Visit: Yes Status: Acute Code(s): K80.20 - CALCULUS OF GALLBLADDER W/O CHOLECYSTITIS W/O OBSTRUCTION SNOMED Code(s): 685856651 (3) RUQ pain Current Visit: Yes Status: Acute Code(s): R10.11 - RIGHT UPPER QUADRANT PAIN SNOMED Code(s): 323530803 Plan: 1. Continue symptomatic and supportive care 2. Patient may have clear liquid diet today, nothing by mouth after midnight 3. MRCP reviewed 4. Daily CBC, CMP 5. Antiemetics as needed 6. Continue with recommendations from general surgery 7. Patient scheduled for ERCP tomorrow morning 8. Please give indomethacin and Levaquin one hour prior to procedure as ordered Thank you for this consultation, we will continue to follow. Dr. Patrick Dowling I agree with the dictator's note, documented as a scribe by Denice Farley.
--- NOTE | 2022-05-11 17:15 | P.CONS ---
History of Present Illness - Reason for Consult Consult date: 05/11/22 Medical management of hypertension, hypothyroidism Requesting physician: Ismael Burnham - Chief Complaint Distal xiphoid and right upper quadrant pain 3-4 weeks - History of Present Illness Assessment 51-year-old female with distal xiphoid/mid epigastric and right upper quadrant pain radiating through to her back as well as around to right scapula over the last 3 to 4 weeks. Patient initially seen in our ER on 04/20/2022 with these symptoms, transferred to [facility] secondary to significant elevated transaminase levels and having no GI services present on site. Ultrasound reported numerous gallstones with no dilated CBD. Symptoms were attributed to Allan Bess virus, and patient was told MRCP, ERCP was not warranted at that particular time. With recurrent symptoms patient presented again to the ER with elevated LFTs, normal common bile duct, multiple mobile stones, cholelithiasis, reported per gallbladder ultrasound. Currently with significant nausea and vomiting, afebrile. Abdominal Pain currently improved. Afebrile, normal WBC, hemoglobin 15, platelets 193. Electrolytes within normal limits, renal function stable. Glucose 131.total bilirubin 1.7 AST 143 ALT 127 alkaline phosphatase 116 lipase 246. Denies chest pain, palpitations or shortness of breath. Review of Systems ROS Statement: Those systems with pertinent positive or pertinent negative responses have been documented in the HPI. ROS Other: All systems not noted in ROS Statement are negative. Past Medical History Past Medical History: Hypertension, Thyroid Disorder History of Any Multi-Drug Resistant Organisms: None Reported Past Surgical History: Back Surgery, Tubal Ligation Additional Past Surgical History / Comment(s): laminectomyx2, L rotator cuff Past Anesthesia/Blood Transfusion Reactions: No Reported Reaction Smoking Status: Never smoker - Past Family History Mother Family Medical History: No Reported History Additional Family Medical History / Comment(s): Mother is 86 and is healthy Father Family Medical History: Coronary Artery Disease (CAD), Diabetes Mellitus, Hypertension Additional Family Medical History / Comment(s): Father is 80 years old Medications and Allergies Home Medications Medication Instructions Recorded Confirmed Type Cetirizine HCl [Zyrtec] 10 mg PO DAILY PRN 05/10/22 05/10/22 History Levothyroxine Sodium [Synthroid] 200 mcg PO DAILY 05/10/22 05/10/22 History Losartan [Cozaar] 25 mg PO W/SUPPER 05/10/22 05/10/22 History Pantoprazole [Protonix] 40 mg PO W/SUPPER 05/10/22 05/10/22 History Sertraline [Zoloft] 50 mg PO W/SUPPER 05/10/22 05/10/22 History Allergies Allergy/AdvReac Type Severity Reaction Status Date / Time erythromycin base Allergy Unknown Verified 05/10/22 07:10 Iodinated Contrast Media Allergy Unknown Verified 05/10/22 07:10 [Iodinated Contrast- Oral and IV Dye] Penicillins Allergy Unknown Verified 05/10/22 07:10 sulfamethoxazole Allergy Unknown Verified 05/10/22 07:10 [From Bactrim] trimethoprim [From Bactrim] Allergy Unknown Verified 05/10/22 07:10 Physical Exam Vitals: Vital Signs Temp Pulse Resp BP Pulse Ox 05/11/22 14:47 97.8 F 57 L 16 131/82 99 05/11/22 07:00 98.4 F 65 18 142/94 95 05/11/22 01:22 98.3 F 53 L 18 127/76 95 05/10/22 20:00 98.1 F 55 L 16 143/83 97 Intake and Output 05/11/22 05/11/22 05/11/22 06:59 14:59 22:59 Other: # Voids 3 3 Weight 90.718 kg PHYSICAL EXAM: VITAL SIGNS: [As above] GENERAL: Sitting up in bed, no acute distress, significant other at bedside HEENT: Conjunctivae normal. eyes normal. NECK: No JVD. No thyroid enlargement. No LNs CARDIOVASCULAR: S1, S2 regular. No murmur RESPIRATION: Breath sounds diminished in the bases. No rhonchi or crackles. No bronchial breathing. ABDOMEN: Soft, minimal epigastric beneath xiphoid, right upper quadrant tenderness . No guarding. no masses palpable.Bowel sounds heard. LEGS: No edema. no swelling. PSYCHIATRY: Alert and oriented X3, mood and affect normal. NERVOUS SYSTEM: Cranial N 2-12 grossly normal. No focal deficits. Strength and sensation grossly intact.. Skin: Warm and dry, no rashes noted. Results CBC & Chem 7: 05/11/22 06:10 05/11/22 06:14 Labs: Abnormal Lab Results - Last 24 Hours (Table) 05/11/22 05/11/22 Range/Units 06:10 06:14 WBC 3.61 L (4.50-10.00) X 10*3/uL Est GFR (CKD-EPI)NonAf 56.7 L (60.0-200.0) BUN/Creatinine Ratio 8.10 L (12.00-20.00) Ratio AST 186 H (13-35) U/L ALT 375 H (8-44) U/L Assessment and Plan Assessment: Acute right upper quadrant, midepigastric abdominal pain ,Cholelithiasis reported per US with elevated LFTs, prior Allan Bess Virus reported as per Joana Lux. Possible choledocholithiasis. Hypertension Hypothyroidism Obesity Plan: Continue on current medication regime ,monitoring and symptomatic treatment. Urgent MRCP completed, reporting suboptimal study, multiple small stones and gallbladder redemonstrated, no biliary, no common bile duct stone clearly seen. Patient is scheduled for ERCP tomorrow morning. Maintain antiemetics, gentle IV fluid hydration. PPI in place for GI prophylaxis. SILVERIO hose for DVT prophylaxis/patient is ambulatory. Home meds reviewed and resumed accordingly. Close monitoring of LFTs with repeat labs ordered for a.m. Aggressive pulmonary toileting with incentive spirometer ordered. The impression and plan of care has been dictated as directed. : I performed a history and examination of this patient, discussed the same with the dictator. I agree with the dictator's note ,documented as a scribe. Any additional findings or plans will be noted.
[2022-05-11] MEDS: LOSARTAN 25 MG TAB PO SCH (17:32)
[2022-05-12] MEDS: ONDANSETRON 4 MG/2 ML VIAL IVP PRN ×3 (01:56→17:40)
[2022-05-12] MEDS ORDERED: INDOMETHACIN 50MG SUPPOSITORY RECTAL ONE (05:00)
[2022-05-12] MEDS ORDERED: LEVOFLOXACIN 500MG-D5W PMX 500 MG in DEXTROSE/WATER 1 100ML.BAG IVPB SCH (05:30)
[2022-05-12] MEDS: LEVOTHYROXINE 100 MCG TAB PO SCH (05:36)
[2022-05-12] MEDS: SODIUM CHLORIDE 0.9% 1,000 ML IV SCH ×3 (05:36→19:45)
[2022-05-12] MEDS: METOCLOPRAMIDE 5 MG/ML 2 ML VIAL IVP PRN ×3 (05:44→22:14)
[2022-05-12] MEDS: HYDROmorphone 1 MG/ML 1 ML SYRINGE IVP PRN ×4 (05:45→22:14)
[2022-05-12] MEDS ORDERED: LIDOCAINE 2% INJ 20 MG/ML (2 ML VIAL) ONE (06:30)
[2022-05-12] MEDS ORDERED: MIDAZOLAM 2 MG/2 ML VIAL ONE (06:30)
[2022-05-12] MEDS ORDERED: diphenhydrAMINE 50 MG/ML 1 ML VIAL ONE (06:30)
[2022-05-12] MEDS ORDERED: GLYCOPYRROLATE 0.2 MG/ML 2 ML VIAL ONE (06:30)
[2022-05-12] MEDS ORDERED: PROPOFOL 10 MG/ML 20 ML VIAL IV ONE (06:30)
[2022-05-12] MEDS ORDERED: IV FLUID CONTINUATION 1,000 ML IV ONE (06:32)
[2022-05-12] MEDS ORDERED: IOPAMIDOL-300 50ML BTL MISCELLANE ONE (06:54)
--- NOTE | 2022-05-12 07:12 | P.PCN ---
Date of Procedure: 05/12/22 Procedure(s) Performed: Brief history: Patient is a 48 year-old pleasant lady scheduled for an ERCP as part of evaluation of abdominal pain and elevated serum transaminases for the last 2 days' duration. She had a similar episode of severe epigastric pain for about 3 weeks ago and was noted to have elevated LFTs and was transferred [facility]. Subsequently she was discharged home with a diagnosis of possible EBV hepatitis. She had another piece of the severe epigastric pain 5 days ago last 5 days and resolved. This time the patient continued to progressively get worse and hence came to the emergency room and was noted to have elevated LFTs and bili up to 1.7. MRCP was done yesterday but there was motion artifact Procedure performed: ERCP Preoperative diagnoses: Intermittent episodes of epigastric pain and elevated LFTs rule out CBD stones IV sedation per anesthesia: Procedure: After informed consent was obtained from the patient and after the risks benefits and complications including bleeding perforation and pancreatitis explained in detail the patient was brought into the endoscopy unit. The patient was placed in prone position and IV conscious sedation was administered by anesthesia under continuous monitoring. The Olympus side-viewing duodenoscope was then inserted into the mouth and esophagus intubated without any difficulty. The scope was gradually advanced into the stomach and duodenum. The major papilla was identified without any difficulty. Initial cannulation resultedin addition of the pancreatic duct that was normal. Subsequently using the guidewire technique common bile duct was cannulated and upon injection of the dye it appeared normal with no filling defects or strictures identified. There was no intrahepatic biliary ductal dilation seen. At this time the procedure was terminated and the patient tolerated the procedure well Impression: Normal pancreatic duct Normal common bile duct with no evidence of filling defects or strictures seen. No intrahepatic biliary ductal dilation seen. Recommendations: The findings of this examination were discussed with the patient. She will be started on clear liquid diet. Monitor labs closely.. She can proceed with gallbladder surgery.
--- NOTE | 2022-05-12 08:51 | FL ---
Fluoroscopy HISTORY: Cholelithiasis 78 seconds fluoroscopy time supplied to the referring clinician. 4 intraoperative C-arm images docum ent the procedure. See dictated report from gastroenterology.
[2022-05-12] MEDS: PANTOPRAZOLE 40 MG/10 ML VIAL IVP SCH (08:53)
[2022-05-12] MEDS: amLODIPine 2.5 MG TAB PO SCH (08:53)
--- NOTE | 2022-05-12 10:19 | P.PN ---
Subjective Progress Note Date: 05/12/22 - Chief Complaint Distal xiphoid and right upper quadrant pain 3-4 weeks - History of Present Illness 05/11/30 Assessment 51-year-old female with distal xiphoid/mid epigastric and right upper quadrant pain radiating through to her back as well as around to right scapula over the last 3 to 4 weeks. Patient initially seen in our ER on 04/20/2022 with these symptoms, transferred to [facility] secondary to significant elevated transaminase levels and having no GI services present on site. Ultrasound reported numerous gallstones with no dilated CBD. Symptoms were attributed to Allan Bess virus, and patient was told MRCP, ERCP was not warranted at that particular time. With recurrent symptoms patient presented again to the ER with elevated LFTs, normal common bile duct, multiple mobile stones, cholelithiasis, reported per gallbladder ultrasound. Currently with significant nausea and vomiting, afebrile. Abdominal Pain currently improved. Afebrile, normal WBC, hemoglobin 15, platelets 193. Electrolytes within normal limits, renal function stable. Glucose 131.total bilirubin 1.7 AST 143 ALT 127 alkaline phosphatase 116 lipase 246. Denies chest pain, palpitations or shortness of breath. 05/12/2022 just returning from ERCP. ambulating back from bathroom, tolerating exertion well. ERCP reported normal pancreatic duct, normal common bile duct with no evidence of filling defects or strictures seen, no intrahepatic biliary ductal dilatation seen. Laparoscopic cholecystectomy pending. Positive abdominal pain. Denies chest pain, palpitations or shortness of breath. Afebrile. Objective - Vital Signs Vital signs: Vital Signs Temp 98.0 F 05/12/22 07:00 Pulse 55 L 05/12/22 07:00 Resp 18 05/12/22 07:00 BP 125/81 05/12/22 07:00 Pulse Ox 96 05/12/22 07:00 FiO2 Intake & Output 05/11/22 05/12/22 05/12/22 18:59 06:59 18:59 Intake Total 200 Balance 200 Weight 90.718 kg Intake: IV 200 Other: Voiding Method Toilet # Voids 3 2 - Exam PHYSICAL EXAM: VITAL SIGNS: [As above] GENERAL: Alert and oriented 3, Sitting up in bed, no acute distress, signific ant other at bedside HEENT: Conjunctivae normal. eyes normal. NECK: No JVD. No thyroid enlargement. No LNs CARDIOVASCULAR: S1, S2 regular. No murmur RESPIRATION: Breath sounds diminished in the bases. ABDOMEN: Soft, right upper quadrant tenderness . No guarding. no masses palpable.Bowel sounds heard. LEGS: No edema. no swelling. NERVOUS SYSTEM: Cranial N 2-12 grossly normal. No focal deficits. Strength and sensation grossly intact. Skin: Warm and dry, no rashes noted. - Labs CBC & Chem 7: 05/11/22 06:10 05/11/22 06:14 Assessment and Plan Assessment: Acute right upper quadrant, midepigastric abdominal pain ,Cholelithiasis reported per US with elevated LFTs, prior Allan Bess Virus reported as per Joni Lux. Possible choledocholithiasis. Status post ERCP reporting normal pancreatic duct, normal CBD, with no evidence of filling defects or strictures, no intrahepatic biliary ductal dilation seen. 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 Plan: Continue on current medication regime ,monitoring and symptomatic treatment. Urgent MRCP completed, reporting suboptimal study, multiple small stones and gallbladder redemonstrated, no biliary, no common bile duct stone clearly seen. Patient is scheduled for ERCP tomorrow morning. Maintain antiemetics, gentle IV fluid hydration. PPI in place for GI prophylaxis. SILVERIO hose for DVT prophylaxis/patient is ambulatory. Home meds reviewed and resumed accordingly. Close monitoring of LFTs with repeat labs ordered for a.m. Aggressive pulmonary toileting with incentive spirometer ordered. 05/12/2022 status post ERCP reporting normal pancreatic duct, normal CBD, with no evidence of filling defects or strictures, no intrahepatic biliary ductal dilation seen. Reports a few weeks back developed significant angioedema attributed to her MARISABEL inhibitor, transitioned over to losartan which she has not been tolerating well; headache since the addition of this medication. Patient's IV medication was also increased approximately 3 weeks ago, repeat thyroid levels. Per PCP losartan will be discontinued and we'll start off on small dose of Norvasc 2.5 mg as blood pressure elevation can also be related to pain. Educated that close monitoring of blood pressure both inpatient and outpatient will continue to balance antihypertensive regimen. Laparoscopic cholecystectomy pending. The impression and plan of care has been dictated as directed. : I performed a history and examination of this patient, discussed the same with the dictator. I agree with the dictator's note ,documented as a scribe. Any additional findings or plans will be noted.
[2022-05-12 11:04] LABS: African American GFR (CKD) 74.5 (60.0-200.0); Albumin 4.2 g/dL (3.8-4.9); Albumin/Globulin Ratio 1.75 (1.60-3.17); Anion Gap 12.1 mmol/L (10.00-18.00); BUN/Creat Ratio 8.3 Ratio (12.00-20.00); Blood Urea Nitrogen 8.3 mg/dL (9.0-27.0); Calcium 8.9 mg/dL (8.7-10.3); Carbon Dioxide 24.9 mmol/L (20.0-27.5); Globulin 2.4 g/dL (1.6-3.3); Non-African American GFR(CKD) 64.3 (60.0-200.0); Potassium 3.7 mmol/L (3.5-5.5); Total Protein 6.6 g/dL (6.2-8.2)
--- NOTE | 2022-05-12 14:08 | P.PN ---
Subjective Progress Note Date: 05/12/22 CHIEF COMPLAINT: Abdominal pain HISTORY OF PRESENT ILLNESS: Patient had ERCP completed this morning results showing normal pancreatic duct. Normal common bile duct with no evidence of filling defects or strictures seen. No intrahepatic biliary ductal dilation seen. Patient complaining of epigastric and right upper quadrant pain. She reports that her pain slightly worse after the procedure. She also still complaining of nausea. Vomiting has resolved. She reports that the Reglan is helping. Afebrile. Sodium is 141 potassium 3.7 creatinine 1.0 total bilirubin normal at 1.00 AST is coming down from 186-71 ALT 375-240 Patient seen and examined with Dr. lowe PHYSICAL EXAM: VITAL SIGNS: Reviewed. GENERAL: Well-developed in no acute distress. HEENT: No sclera icterus. Extraocular movements grossly intact. Moist buccal mucosa. Head is atraumatic, normocephalic. ABDOMEN: Soft. Nondistended. Epigastric and right upper quadrant tenderness NEUROLOGIC: Alert and oriented. Cranial nerves II through XII grossly intact. ASSESSMENT: 1. Cholecystitis 2. Possible choledocholithiasis 3. Elevated LFTs and total bilirubin trending down PLAN: -Patient scheduled for laparoscopic cholecystectomy on 05/15/[address] lowe -Due to increased epigastric pain we'll check lipase level to rule out pancreatitis -Keep patient nothing by mouth. If lipase normal she can restart on clear liquids -Repeat lipase in a.m. -Continue to monitor LFTs -Continue Zofran and Reglan when necessary for nausea and vomiting -Zoloft discontinued because of drug interaction with Reglan -Continue IV fluids -GI prophylaxis Protonix and DVT prophylaxis subcu heparin -Case has been discussed with patient and . Initially they were upset that they could not have the cholecystectomy done today or over the weekend. Explained to the patient that she needs about 36 hours after ERCP procedure before proceeding with surgery. And patient continues to have abdominal pain with nausea would recommend that she remains hospitalized until Sunday for cholecystectomy. Patient is agreeable to this plan. Physician Development Analyst note has been reviewed by physician. Signing provider agrees with the documented findings, assessment, and plan of care. Objective - Vital Signs Vital signs: Vital Signs Temp 98.0 F 05/12/22 07:00 Pulse 55 L 05/12/22 07:00 Resp 18 05/12/22 07:00 BP 125/81 05/12/22 07:00 Pulse Ox 96 05/12/22 07:00 FiO2 Intake & Output 05/11/22 05/12/22 05/12/22 18:59 06:59 18:59 Intake Total 200 Balance 200 Weight 90.718 kg 90.718 kg Intake: IV 200 Other: Voiding Method Toilet # Voids 3 2 - Labs CBC & Chem 7: 05/11/22 06:10 05/12/22 07:31 Labs: Abnormal Lab Results - Last 24 Hours (Table) 05/12/22 Range/Units 07:31 BUN 8.3 L (9.0-27.0) mg/dL BUN/Creatinine Ratio 8.30 L (12.00-20.00) Ratio Glucose 111 H (70-110) mg/dL AST 71 H (13-35) U/L ALT 241 H (8-44) U/L
[2022-05-12] MEDS: HEPARIN SODIUM,PORCINE/PF 5,000 UNIT/0.5 ML SYRINGE SQ SCH (20:28)
[2022-05-13] MEDS: ONDANSETRON 4 MG/2 ML VIAL IVP PRN ×2 (02:04→08:50)
[2022-05-13] MEDS: HYDROmorphone 1 MG/ML 1 ML SYRINGE IVP PRN ×2 (02:05→08:50)
[2022-05-13] MEDS: SODIUM CHLORIDE 0.9% 1,000 ML IV SCH ×2 (02:07→09:28)
[2022-05-13] MEDS: LEVOTHYROXINE 100 MCG TAB PO SCH (05:38)
[2022-05-13] MEDS: METOCLOPRAMIDE 5 MG/ML 2 ML VIAL IVP PRN ×2 (06:21→12:38)
[2022-05-13] MEDS: HEPARIN SODIUM,PORCINE/PF 5,000 UNIT/0.5 ML SYRINGE SQ SCH (08:43)
[2022-05-13] MEDS: PANTOPRAZOLE 40 MG/10 ML VIAL IVP SCH (08:49)
[2022-05-13] MEDS: amLODIPine 2.5 MG TAB PO SCH ×2 (08:49→08:56)
[2022-05-13 09:03] LABS: Basophils # (A) 0.03 X 10*3/uL (0.00-0.10); Basophils % (A) 0.8 %; Eosinophils # (A) 0.08 X 10*3/uL (0.04-0.35); Eosinophils % (A) 2.2 %; HCT 38.9 % (37.2-46.3); Immature Grans, Automated 0.3 %; Lymphocytes # (A) 0.94 X 10*3/uL (0.90-5.00); MCH 32.3 pg (27.0-32.0); MCHC 33.4 g/dL (32.0-37.0); MCV 96.5 fL (80.0-97.0); Mean Platelet Volume 10.4 fL (9.5-12.2); Monocytes # (A) 0.44 X 10*3/uL (0.20-1.00); Monocytes % (A) 12.2 %; NRBC Per 100 WBC 0 /100 WBCS (0.0-0.0); Neutrophils # (A) 2.11 X 10*3/uL (1.80-7.70); Neutrophils % (A) 58.5 %; Platelet Count 169 X 10*3/uL (140-440); RBC 4.03 X 10*6/uL (4.10-5.20); RDW 12.2 % (11.5-14.5); WBC 3.61 X 10*3/uL (4.50-10.00)
[2022-05-13 09:57] LABS: African American GFR (CKD) 74.5 (60.0-200.0); Albumin 3.9 g/dL (3.8-4.9); Albumin/Globulin Ratio 1.95 (1.60-3.17); Anion Gap 12.4 mmol/L (10.00-18.00); BUN/Creat Ratio 8.6 Ratio (12.00-20.00); Blood Urea Nitrogen 8.6 mg/dL (9.0-27.0); Calcium 8.8 mg/dL (8.7-10.3); Carbon Dioxide 23.6 mmol/L (20.0-27.5); Non-African American GFR(CKD) 64.3 (60.0-200.0); Potassium 3.7 mmol/L (3.5-5.5); Total Bilirubin 0.8 mg/dL (0.30-1.20); Total Protein 5.9 g/dL (6.2-8.2)
--- NOTE | 2022-05-13 14:09 | P.DS ---
Providers Date of admission: 05/10/22 05:16 Expected date of discharge: 05/13/22 Attending physician: Ismael Burnham Consults: 05/10/22 06:10 Consult Physician Urgent Consulting Provider: Bita Dowling Consult Reason/Comments: elevated liver enzymes, cholelithiasis Do you want consulting provider notified?: Yes 05/10/22 08:20 Consult Physician Routine Consulting Provider: Abel Ocampo Consult Reason/Comments: medical management Do you want consulting provider notified?: Yes Primary care physician: Abel Ocampo [facility] Course: CHIEF COMPLAINT: Abdominal pain HISTORY OF PRESENT ILLNESS: The patient is a 51-year-old female with recurrent abdominal pain including symptomatic gallstones. Patient had elevated liver enzymes. She also had ERCP without common bile duct stones. She reports nausea. At this time, patient wants to go home and reconsider surgery. ROS: No fevers or chills. No new chest pain. PHYSICAL EXAM: VITAL SIGNS: Reviewed CONSTITUTIONAL: Well developed and in no acute distress. EYES: Conjuctivae without sclera icterus. Extraocular movements grossly intact. HEAD, EARS, NOSE, THROAT: Moist buccal mucosa. Head is atraumatic, normoceph alic. Hears conversational speech. No nasal drainage. RESPIRATORY: Non-labored respirations and equal bilateral excursions. CARDIOVASCULAR: Palpable 2+ radial pulses. ABDOMEN: No peritonitis. MUSCULOSKELETAL: No gross deformity of the lower extremities noted. No clubbing. No cyanosis. SKIN: Good skin turgor. Well perfused. NEUROLOGIC: Cranial nerves II through XII grossly intact. No focal or lateralizing signs. PSYCH: Appropriate affect. Alert and oriented to person, place and time. CLINICAL LABS: Reviewed. LFTs improving. ASSESSMENT: 1. ERCP induced pancreatitis 2. Symptomatic gallstone PLAN: 1. At this time, abdominal pain improved. Patient wishes to go home and reconsider surgery. 2. Stable for discharge. Patient recommended to follow with her primary care provider. Patient Condition at Discharge: Stable Plan - Discharge Summary Discharge Rx Participant: No New Discharge Prescriptions: New Ondansetron Odt [Zofran ODT] 4 mg PO Q8HR PRN #10 tab PRN Reason: Nausea Continue Losartan [Cozaar] 25 mg PO W/SUPPER Levothyroxine Sodium [Synthroid] 200 mcg PO DAILY Pantoprazole [Protonix] 40 mg PO W/SUPPER Sertraline [Zoloft] 50 mg PO W/SUPPER Cetirizine HCl [Zyrtec] 10 mg PO DAILY PRN PRN Reason: Allergy Symptoms Discharge Medication List Cetirizine HCl [Zyrtec] 10 mg PO DAILY PRN 05/10/22 [History] Levothyroxine Sodium [Synthroid] 200 mcg PO DAILY 05/10/22 [History] Losartan [Cozaar] 25 mg PO W/SUPPER 05/10/22 [History] Pantoprazole [Protonix] 40 mg PO W/SUPPER 05/10/22 [History] Sertraline [Zoloft] 50 mg PO W/SUPPER 05/10/22 [History] Ondansetron Odt [Zofran ODT] 4 mg PO Q8HR PRN #10 tab 05/13/22 [Rx] Follow up Appointment(s)/Referral(s): Abel Ocampo DO [Primary Care Provider] - 1-2 days Patient Instructions/Handouts: Gallstones (GEN) Discharge Disposition: HOME SELF-CARE
[2022-05-13 14:18] VITALS: BP 138/94; PULSE 68; RESP 20; TEMP 97.9
--- NOTE | 2022-05-14 08:26 | P.PN ---
Subjective Progress Note Date: 05/13/22 Principal diagnosis: Distal xiphoid and right upper quadrant pain 3-4 weeks 51-year-old female with distal xiphoid/mid epigastric and right upper quadrant pain radiating through to her back as well as around to right scapula over the last 3 to 4 weeks. Patient initially seen in our ER on 04/20/2022 with these symptoms, transferred to [facility] secondary to significant elevated transaminase levels and having no GI services present on site. Ultrasound reported numerous gallstones with no dilated CBD. Symptoms were attributed to Allan Bess virus, and patient was told MRCP, ERCP was not warranted at that particular time. With recurrent symptoms patient presented again to the ER with elevated LFTs, normal common bile duct, multiple mobile stones, cholelithiasis, reported per gallbladder ultrasound. Currently with significant nausea and vomiting, afebrile. Abdominal Pain currently improved. Afebrile, normal WBC, hemoglobin 15, platelets 193. Electrolytes within normal limits, renal function stable. Glucose 131.total bilirubin 1.7 AST 143 ALT 127 alkaline phosphatase 116 lipase 246. Denies chest pain, palpitations or shortness of breath. 05/12/2022 just returning from ERCP. ambulating back from bathroom, tolerating exertion well. ERCP reported normal pancreatic duct, normal common bile duct with no evidence of filling defects or strictures seen, no intrahepatic biliary ductal dilatation seen. Laparoscopic cholecystectomy pending. Positive abdominal pain. Denies chest pain, palpitations or shortness of breath. Afebrile. 05/13/2022 Patient seen and evaluated in room at bedside; patient seems very upset since s he is scheduled for cholecystectomy on Sunday; patient was promised surgery day following admission; patient reports that she would like to switch surgery service to Dr. Sosa; continues to have concerns about abdominal pain Objective - Vital Signs Vital signs: Vital Signs Temp 97.6 F 05/13/22 01:38 Pulse 50 L 05/13/22 01:38 Resp 16 05/13/22 01:38 BP 112/72 05/13/22 01:38 Pulse Ox 92 L 05/13/22 01:38 FiO2 Intake & Output 05/12/22 05/13/22 05/13/22 18:59 06:59 18:59 Intake Total 200 Balance 200 Weight 90.718 kg Intake: IV 200 Other: Voiding Method Toilet # Voids 3 1 - Exam GENERAL: Alert and oriented 3, Sitting up in bed, no acute distress, significant other at bedside HEENT: Conjunctivae normal. eyes normal. NECK: No JVD. No thyroid enlargement. No LNs CARDIOVASCULAR: S1, S2 regular. No murmur RESPIRATION: Breath sounds diminished in the bases. ABDOMEN: Soft, right upper quadrant tenderness . No guarding. no masses palpable.Bowel sounds heard. LEGS: No edema. no swelling. NERVOUS SYSTEM: Cranial N 2-12 grossly normal. No focal deficits. Strength and sensation grossly intact. Skin: Warm and dry, no rashes noted. - Labs CBC & Chem 7: 05/13/22 02:46 05/13/22 02:46 Labs: Abnormal Lab Results - Last 24 Hours (Table) 05/12/22 05/13/22 05/13/22 Range/Units 07:31 02:46 02:46 WBC 3.61 L (4.50-10.00) X 10*3/uL RBC 4.03 L (4.10-5.20) X 10*6/uL MCH 32.3 H (27.0-32.0) pg BUN 8.6 L (9.0-27.0) mg/dL BUN/Creatinine Ratio 8.60 L (12.00-20.00) Ratio AST 41 H (13-35) U/L ALT 179 H (8-44) U/L Total Protein 5.9 L (6.2-8.2) g/dL Lipase 95 H 83 H (14-63) U/L Assessment and Plan Assessment: Acute right upper quadrant, midepigastric abdominal pain ,Cholelithiasis reported per US with elevated LFTs, prior Allan Bess Virus reported as per Joana Lux. Possible choledocholithiasis. Status post ERCP reporting nor mal pancreatic duct, normal CBD, with no evidence of filling defects or strictures, no intrahepatic biliary ductal dilation seen. 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 Plan: Continue on current medication regime ,monitoring and symptomatic treatment. Urgent MRCP completed, reporting suboptimal study, multiple small stones and gallbladder redemonstrated, no biliary, no common bile duct stone clearly seen. Patient is scheduled for ERCP tomorrow morning. Maintain antiemetics, gentle IV fluid hydration. PPI in place for GI prophylaxis. SILVERIO hose for DVT prophylaxis/patient is ambulatory. Home meds reviewed and resumed accordingly. Close monitoring of LFTs with repeat labs ordered for a.m. Aggressive pulmonary toileting with incentive spirometer ordered.
== END 2022-05-13 15:06 | disposition home or self-care (01) ==
LOC: EC 01:48 → 6NMEDSUR 05:16
PROVIDERS: ADMIT Surgery; ATTEND Surgery
DX: K80.20 Calculus of gallbladder without cholecystitis without obstruction (principal); K85.80 Other acute pancreatitis without necrosis or infection; B27.00 Gammaherpesviral mononucleosis without complication; R74.01 Elevation of levels of liver transaminase levels; E03.9 Hypothyroidism, unspecified; I10 Essential (primary) hypertension; R79.89 Other specified abnormal findings of blood chemistry; K76.0 Fatty (change of) liver, not elsewhere classified; Z79.890 Hormone replacement therapy; Z88.0 Allergy status to penicillin; Z88.1 Allergy status to other antibiotic agents; Z88.2 Allergy status to sulfonamides; Z91.041 Radiographic dye allergy status; Z98.51 Tubal ligation status; Z83.3 Family history of diabetes mellitus; Z82.49 Family history of ischemic heart disease and other diseases of the circulatory system; Z32.02 Encounter for pregnancy test, result negative
CPT/HCPCS: 96365; 96372; 96375 ×2; 96376 ×3; 99285; 36415; 80053 ×4; 84443; 82150; 83605; 83690 ×3; 85025 ×3; 85610; 81003; 84703; 74330; 76705; 74181; 43260; G0378 ×4; J2250; J1200 ×2; J2765 ×4; J2405 ×4; J1956; J1170 ×4; J2704; C9113 ×4; Q9967; J1644; J2001

== ENCOUNTER 2022-05-16 12:40 | Observation (INO) | payer BC ==
--- NOTE | 2022-05-16 13:19 | ED ---
Abdominal Pain HPI - General Chief Complaint: Abdominal Pain Stated Complaint: abd pain Time Seen by Provider: 05/16/22 12:46 Source: patient Mode of arrival: ambulatory Limitations: no limitations - History of Present Illness Initial Comments: This patient is a 52-year-old woman sent here from Dr. Sosa's clinic to be admitted with intention of having surgical clearance and then cholecystectomy. There is question whether patient had some underlying heart disease. Patient does not have known coronary disease. She has had some chest pain but this was felt related to gallbladder. Pains are epigastric and right upper quadrant. They do occasionally radiate to right scapular area. No pain currently. Pains of been accompanied by nausea and vomiting. MD Complaint: abdominal pain -: week(s) Location: RUQ, epigastric Radiation: back Migration to: no migration Severity: moderate Quality: aching Consistency: now resolved Improves With: nothing Worsens With: nothing Associated Symptoms: nausea - Related Data Home Medications Medication Instructions Recorded Confirmed Cetirizine HCl [Zyrtec] 10 mg PO DAILY PRN 05/10/22 05/10/22 Levothyroxine Sodium [Synthroid] 200 mcg PO DAILY 05/10/22 05/10/22 Losartan [Cozaar] 25 mg PO W/SUPPER 05/10/22 05/10/22 Pantoprazole [Protonix] 40 mg PO W/SUPPER 05/10/22 05/10/22 Sertraline [Zoloft] 50 mg PO W/SUPPER 05/10/22 05/10/22 Previous Rx's Medication Instructions Recorded Ondansetron Odt [Zofran ODT] 4 mg PO Q8HR PRN #10 tab 05/13/22 Allergies Allergy/AdvReac Type Severity Reaction Status Date / Time erythromycin base Allergy Unknown Verified 05/16/22 12:46 Iodinated Contrast Media Allergy Unknown Verified 05/16/22 12:46 [Iodinated Contrast- Oral and IV Dye] Penicillins Allergy Unknown Verified 05/16/22 12:46 sulfamethoxazole Allergy Unknown Verified 05/16/22 12:46 [From Bactrim] trimethoprim [From Bactrim] Allergy Unknown Verified 05/16/22 12:46 Review of Systems ROS Statement: Those systems with pertinent positive or pertinent negative responses have been documented in the HPI. ROS Other: All systems not noted in ROS Statement are negative. Constitutional: Denies: fever, chills Respiratory: Denies: cough, dyspnea Cardiovascular: Denies: chest pain, palpitations Gastrointestinal: Reports: abdominal pain, nausea, vomiting. Denies: diarrhea, melena, hematochezia Genitourinary: Denies: dysuria, hematuria Musculoskeletal: Denies: back pain Skin: Denies: rash Neurological: Denies: headache, weakness, numbness Psychiatric: Denies: anxiety Past Medical History Past Medical History: Hypertension, Thyroid Disorder History of Any Multi-Drug Resistant Organisms: None Reported Past Surgical History: Tubal Ligation Additional Past Surgical History / Comment(s): laminectomyx2, shoulder Past Anesthesia/Blood Transfusion Reactions: No Reported Reaction Past Psychological History: No Psychological Hx Reported Smoking Status: Never smoker Past Alcohol Use History: None Reported Past Drug Use History: None Reported - Past Family History Mother Family Medical History: No Reported History Additional Family Medical History / Comment(s): Mother is 86 and is healthy Father Family Medical History: Coronary Artery Disease (CAD), Diabetes Mellitus, Hypertension Additional Family Medical History / Comment(s): Father is 80 years old General Exam Limitations: no limitations General appearance: alert, in no apparent distress Head exam: Present: atraumatic, normocephalic Eye exam: Present: normal appearance. Absent: scleral icterus, conjunctival injection ENT exam: Present: normal oropharynx Neck exam: Present: normal inspection Respiratory exam: Present: normal lung sounds bilaterally. Absent: respiratory distress, wheezes, rales, rhonchi, stridor Cardiovascular Exam: Present: regular rate, normal rhythm, normal heart sounds. Absent: systolic murmur, diastolic murmur, rubs, gallop GI/Abdominal exam: Present: soft. Absent: distended, tenderness, guarding, rebound, rigid, mass Extremities exam: Present: normal inspection, normal capillary refill. Absent: pedal edema, calf tenderness Back exam: Present: normal inspection. Absent: CVA tenderness (R), CVA tenderness (L) Neurological exam: Present: alert Skin exam: Present: warm, dry, intact, normal color. Absent: rash Course Vital Signs 05/16/22 05/16/22 12:41 14:08 Temperature 97.7 F 98.0 F Pulse Rate 77 80 Respiratory 20 20 Rate Blood Pressure 143/108 145/105 O2 Sat by Pulse 97 97 Oximetry Medical Decision Making - Lab Data Result diagrams: 05/16/22 13:27 05/16/22 13:27 Lab Results 05/16/22 05/16/22 Range/Units 13:27 13:27 WBC 3.7 L (3.8-10.6) k/uL RBC 4.98 (3.80-5.40) m/uL Hgb 15.6 (11.4-16.0) gm/dL Hct 44.4 (34.0-46.0) % MCV 89.3 (80.0-100.0) fL MCH 31.4 (25.0-35.0) pg MCHC 35.2 (31.0-37.0) g/dL RDW 12.8 (11.5-15.5) % Plt Count 209 (150-450) k/uL MPV 8.1 Neutrophils % 66 % Lymphocytes % 19 % Monocytes % 8 % Eosinophils % 3 % Basophils % 1 % Neutrophils # 2.4 (1.3-7.7) k/uL Lymphocytes # 0.7 L (1.0-4.8) k/uL Monocytes # 0.3 (0-1.0) k/uL Eosinophils # 0.1 (0-0.7) k/uL Basophils # 0.0 (0-0.2) k/uL Sodium 141 (137-145) mmol/L Potassium 3.9 (3.5-5.1) mmol/L Chloride 105 (98-107) mmol/L Carbon Dioxide 22 (22-30) mmol/L Anion Gap 14 mmol/L BUN 15 (7-17) mg/dL Creatinine 0.87 (0.52-1.04) mg/dL Est GFR (CKD-EPI)AfAm 88 (>60 ml/min/1.73 sqM) Est GFR (CKD-EPI)NonAf 76 (>60 ml/min/1.73 sqM) Glucose 103 H (74-99) mg/dL Calcium 9.9 (8.4-10.2) mg/dL Total Bilirubin 1.7 H (0.2-1.3) mg/dL AST 133 H (14-36) U/L ALT 252 H (4-34) U/L Alkaline Phosphatase 115 (38-126) U/L Total Protein 8.0 (6.3-8.2) g/dL Albumin 5.0 (3.5-5.0) g/dL Amylase 55 (30-110) U/L Lipase 289 (23-300) U/L - EKG Data -: EKG Interpreted by Me EKG shows normal: sinus rhythm, axis (Normal), intervals (Normal), QRS complexes (Normal), ST-T waves (Normal) Rate: normal (Rate 64 bpm) Disposition Clinical Impression: Cholelithiasis, RUQ pain Disposition: ADMITTED IP TO THIS [facility] Condition: Good Is patient prescribed a controlled substance at d/c from ED?: No Referrals: Abel Ocampo DO [Primary Care Provider] - 1-2 days Time of Disposition: 14:25
[2022-05-16 13:47] LABS: Basophils % (A) 1 %; Eosinophils # (A) 0.1 k/uL (0-0.7); Eosinophils % (A) 3 %; HCT 44.4 % (34.0-46.0); HGB 15.6 gm/dL (11.4-16.0); Lymphocytes # (A) 0.7 k/uL (1.0-4.8); Lymphocytes % (A) 19 %; MCH 31.4 pg (25.0-35.0); MCHC 35.2 g/dL (31.0-37.0); MCV 89.3 fL (80.0-100.0); Mean Platelet Volume 8.1; Monocytes # (A) 0.3 k/uL (0-1.0); Monocytes % (A) 8 %; Neutrophils # (A) 2.4 k/uL (1.3-7.7); Neutrophils % (A) 66 %; Platelet Count 209 k/uL (150-450); RBC 4.98 m/uL (3.80-5.40); RDW 12.8 % (11.5-15.5); WBC 3.7 k/uL (3.8-10.6)
[2022-05-16 13:55] LABS: Calcium 9.9 mg/dL (8.4-10.2); Total Bilirubin 1.7 mg/dL (0.2-1.3)
[2022-05-16 14:00] LABS: Potassium 3.9 mmol/L (3.5-5.1)
[2022-05-16] MEDS ORDERED: NALOXONE 0.4 MG/ML 1 ML VIAL IV PRN (14:23)
[2022-05-16] MEDS ORDERED: MAG HYDROX/AL HYDROX/SIMETH 30 ML CUP PO PRN (14:23)
[2022-05-16] MEDS: HYDROmorphone 1 MG/ML 1 ML SYRINGE IVP PRN (15:05)
[2022-05-16] MEDS: SODIUM CHLORIDE 0.9% 1,000 ML IV SCH ×2 (15:06→23:51)
[2022-05-16] MEDS ORDERED: ACETAMINOPHEN IV (For NPO) 1,000 MG in EMPTY BAG 1 BAG IVPB ONE (15:51)
[2022-05-16] MEDS: METOCLOPRAMIDE 5 MG/ML 2 ML VIAL IVP PRN ×2 (15:52→23:51)
[2022-05-16] MEDS ORDERED: SCOPOLAMINE 1 MG/72 HR PATCH TRANSDERM SCH (16:00)
[2022-05-16] MEDS: KETOROLAC 15 MG/ML 1 ML VIAL IVP SCH (20:30)
[2022-05-16 21:56] LABS: Appearance,Urine Cloudy (Clear); Bacteria,Urine Rare /hpf; Bilirubin,Urine Negative (Negative); Blood,Urine Negative (Negative); Color,Urine Yellow; Glucose,Urine (UA) Negative (Negative); Hyaline Casts,Urine 3 /lpf (0-2); Ketones,Urine Trace (Negative); Leukocyte Esterase,Urine Negative (Negative); Mucus,Urine Many /hpf; Nitrite,Urine Negative (Negative); Protein,Urine Trace (Negative); RBC,Urine 2 /hpf (0-5); Specific Gravity,Urine 1.026 (1.001-1.035); Squamous Epithelial Cell,Urine 4 /hpf (0-4); Urobilinogen,Urine <2.0 mg/dL (<2.0); WBC,Urine 2 /hpf (0-5)
[2022-05-16] MEDS ORDERED: LORATADINE 10 MG TAB PO PRN (22:07)
[2022-05-17] MEDS: KETOROLAC 15 MG/ML 1 ML VIAL IVP SCH ×4 (01:24→17:08)
[2022-05-17] MEDS: SODIUM CHLORIDE 0.9% 1,000 ML IV SCH ×3 (05:53→22:28)
[2022-05-17] MEDS: LEVOTHYROXINE 100 MCG TAB PO SCH (05:56)
--- NOTE | 2022-05-17 07:58 | P.GSHP ---
History of Present Illness H&P Date: 05/17/22 CHIEF COMPLAINT: Symptomatic gallstones with elevated liver enzymes HISTORY OF PRESENT ILLNESS: The patient is a 52 year old female who presents with complicated history of symptomatic gallstones with elevated liver enzymes and gallstone pancreatitis for over 1 month. She has multiple hospitalizations at least 4 times in the past 2 months for symptomatic gallstones including elevated liver enzymes. She reports moderate nausea including crampy abdominal pain of the right upper quadrant and epigastrium. She had recent ERCP and MRCP 1 week ago with findings of gallstones without choledocholithiasis. She presents with recurrent elevated liver enzymes including total bilirubin levels being elevated. She reports decreased oral intake due to chronic nausea. Patient is admitted for symptomatic gallstones with history of choledocholithiasis and gallstone pancreatitis. PAST MEDICAL HISTORY: See list and reviewed PAST SURGICAL HISTORY: See list and reviewed MEDICATIONS: See list and reviewed ALLERGIES: See list and reviewed SOCIAL HISTORY: See list and reviewed FAMILY HISTORY: See list and reviewed REVIEW OF ORGAN SYSTEMS: CONSTITUTIONAL: No fevers or chills. Has morbid obesity, BMI 35.3. EYES: Denies any trouble with vision. No glasses. HEENT: No difficulties with hearing. No nosebleeds. No difficulty swallowing. RESPIRATORY: Denies pneumonia. Denies any troubles with breathing or dyspnea on exertion. CARDIOVASCULAR: Has hypertension. Recent abnormal EKG demonstrating anterior infarct of undetermined age. GASTROINTESTINAL: Has gallstones with gastroesophageal reflux disease. GENITOURINARY: Denies any blood in urine or increased urinary frequency. NEUROLOGICAL: Denies any numbness or tingling along the distal extremities. No seizure disorders or headaches. MUSCULOSKELETAL: Has occasional back pain, stiffness or joint arthritis. SKIN: No current skin cancer. No rash. PSYCHIATRIC: Has depression. ENDOCRINE: Denies current thyroid disorders. Denies any blood sugar glucose intolerance. HEME/LYMPHATIC: Denies any lumps and bumps around the neck. No recent deep venous thrombosis. ALLERGY/IMMUNOLOGY: No immunoglobulin therapy. No immune deficiencies. BREAST: Denies current breast lumps, pain or nipple discharge. PHYSICAL EXAM: VITALS: Reviewed CONSTITUTIONAL: Well developed and in no acute distress. EYES: Conjuctivae without sclera icterus. Extraocular movements grossly intact. HEAD, EARS, NOSE, THROAT: Moist buccal mucosa. Head is atraumatic, normocephalic. Hears conversational speech. No nasal drainage. NECK: Supple. No JV distention. No thyroidomegaly. RESPIRATORY: Non-labored respirations and equal bilateral excursions. No gross wheezes. CARDIOVASCULAR: Palpable 2+ radial pulses. ABDOMEN: No peritonitis. Epigastric tenderness. LYMPH: No neck lymphadenopathy. MUSCULOSKELETAL: No clubbing cyanosis or edema. SKIN: Warm and well perfused with good skin turgor. NEUROLOGIC: Cranial nerves II through XII grossly intact. No focal or lateralizing signs. PSYCH: Appropriate affect. Alert and oriented to person, place and time. Displays appropriate insight. CLINCAL LABS: Reviewed. Total bilirubin elevated 1.7 on admission was normal prior to recent discharge. LFTs elevated compared to recent discharge. IMAGING: Independently review of ultrasound from recent hospitalization demonstrates gallstones. RADIOLOGY: Report reviewed of MRCP equivocal due to motion artifact for choledocholithiasis. RECORDS: previous old records reviewed from ERCP demonstrates no common bile duct stones. EKG: EKG is from 2017 and April 2022 demonstrating anterior infarct age undetermined. Repeat EKG demonstrating normal sinus rhythm. ASSESSMENT: 1. Symptomatic gallstones with elevated liver enzymes 2. History of choledocholithiasis and gallstone pancreatitis 3. History of abnormal EKG 4. Morbid obesity due to excess calories, BMI 35.3 5. Depressive disorder 6. Hypertensive heart disease 7. Gastroesophageal reflux disease 8. Chronic nausea PLAN: 1 . IV fluid hydration. 2. Cardiac risk assessment obtained due to history of abnormal EKG with conflicting results. Echo was ordered. 3. Recommend inpatient cholecystectomy due to recurrent hospitalizations for gallstone pancreatitis and symptomatic gallstones 4. Surgical prophylaxis with antibiotics 5. Patient's elevated risk due to comorbidities Thank you for this kind consultation. Past Medical History Past Medical History: Hypertension, Thyroid Disorder History of Any Multi-Drug Resistant Organisms: None Reported Past Surgical History: Tubal Ligation Additional Past Surgical History / Comment(s): laminectomyx2, shoulder Past Anesthesia/Blood Transfusion Reactions: No Reported Reaction Smoking Status: Unknown if ever smoked - Past Family History Mother Family Medical History: No Reported History Additional Family Medical History / Comment(s): Mother is 86 and is healthy Father Family Medical History: Coronary Artery Disease (CAD), Diabetes Mellitus, Hypertension Additional Family Medical History / Comment(s): Father is 80 years old Medications and Allergies Home Medications Medication Instructions Recorded Confirmed Type Cetirizine HCl [Zyrtec] 10 mg PO DAILY PRN 05/10/22 05/16/22 History Levothyroxine Sodium [Synthroid] 200 mcg PO DAILY 05/10/22 05/16/22 History Pantoprazole [Protonix] 40 mg PO W/SUPPER 05/10/22 05/16/22 History Sertraline [Zoloft] 50 mg PO W/SUPPER 05/10/22 05/16/22 History Ondansetron Odt [Zofran ODT] 4 mg PO Q8HR PRN 05/16/22 05/16/22 History amLODIPine [Norvasc] 5 mg PO W/SUPPER 05/16/22 05/16/22 History Allergies Allergy/AdvReac Type Severity Reaction Status Date / Time erythromycin base Allergy Unknown Verified 05/16/22 15:01 Iodinated Contrast Media Allergy Unknown Verified 05/16/22 15:01 [Iodinated Contrast- Oral and IV Dye] Penicillins Allergy Unknown Verified 05/16/22 15:01 sulfamethoxazole Allergy Unknown Verified 05/16/22 15:01 [From Bactrim] trimethoprim [From Bactrim] Allergy Unknown Verified 05/16/22 15:01 Surgical - Exam Vital Signs Temp Pulse Resp BP Pulse Ox 97.7 F 77 20 143/108 97 05/16/22 12:41 05/16/22 12:41 05/16/22 12:41 05/16/22 12:41 05/16/22 12:41 Results - Labs 05/16/22 13:27 05/17/22 06:12 Abnormal Lab Results - Last 24 Hours (Table) 05/16/22 05/16/22 05/16/22 Range/Units 13:27 13:27 13:27 WBC 3.7 L (3.8-10.6) k/uL Lymphocytes # 0.7 L (1.0-4.8) k/uL Glucose 103 H (74-99) mg/dL Total Bilirubin 1.7 H (0.2-1.3) mg/dL AST 133 H (14-36) U/L ALT 252 H (4-34) U/L Urine Appearance Cloudy H (Clear) Urine Protein Trace H (Negative) Urine Ketones Trace H (Negative) Urine Bacteria Rare H (None) /hpf Hyaline Casts 3 H (0-2) /lpf Urine Mucus Many H (None) /hpf Diabetes panel 05/16/22 Range/Units 13:27 Sodium 141 (137-145) mmol/L Potassium 3.9 (3.5-5.1) mmol/L Chloride 105 (98-107) mmol/L Carbon Dioxide 22 (22-30) mmol/L BUN 15 (7-17) mg/dL Creatinine 0.87 (0.52-1.04) mg/dL Glucose 103 H (74-99) mg/dL Calcium 9.9 (8.4-10.2) mg/dL AST 133 H (14-36) U/L ALT 252 H (4-34) U/L Alkaline Phosphatase 115 (38-126) U/L Total Protein 8.0 (6.3-8.2) g/dL Albumin 5.0 (3.5-5.0) g/dL Calcium panel 05/16/22 Range/Units 13:27 Calcium 9.9 (8.4-10.2) mg/dL Albumin 5.0 (3.5-5.0) g/dL Pituitary panel 05/16/22 Range/Units 13:27 Sodium 141 (137-145) mmol/L Potassium 3.9 (3.5-5.1) mmol/L Chloride 105 (98-107) mmol/L Carbon Dioxide 22 (22-30) mmol/L BUN 15 (7-17) mg/dL Creatinine 0.87 (0.52-1.04) mg/dL Glucose 103 H (74-99) mg/dL Calcium 9.9 (8.4-10.2) mg/dL Adrenal panel 05/16/22 Range/Units 13:27 Sodium 141 (137-145) mmol/L Potassium 3.9 (3.5-5.1) mmol/L Chloride 105 (98-107) mmol/L Carbon Dioxide 22 (22-30) mmol/L BUN 15 (7-17) mg/dL Creatinine 0.87 (0.52-1.04) mg/dL Glucose 103 H (74-99) mg/dL Calcium 9.9 (8.4-10.2) mg/dL Total Bilirubin 1.7 H (0.2-1.3) mg/dL AST 133 H (14-36) U/L ALT 252 H (4-34) U/L Alkaline Phosphatase 115 (38-126) U/L Total Protein 8.0 (6.3-8.2) g/dL Albumin 5.0 (3.5-5.0) g/dL
[2022-05-17] MEDS: ENOXAPARIN 30 MG/0.3 ML SYRINGE SQ SCH (08:11)
--- NOTE | 2022-05-17 08:50 | P.CRDCN ---
History of Present Illness History of present illness: HISTORY OF PRESENTING ILLNESS This is a pleasant 52-year-old female past medical history significant for hypertension and hypothyroidism. Does not follow with a electronic masking system operator. She does not follow with a electronic masking system operator. We have been asked to see in consultation for surgical clearance. Patient presents emergency department from surgical clinic for the intention of surgical clearance and cholecystectomy. She states she has been having gallstones and abdominal pain. She has been following outpatient with Dr. Randle with planned cholecystectomy. Patient seen and examined at bedside, no acute distress. She denies any chest pain, shortness of breath, palpitations, lightheadedness, dizziness. She denies any history of CAD, [place], diabetes, dyslipidemia, stroke, seizures. Family history includes her father had CAD with CABG. She denies any cardiac history or any other medical problems. She is a non-smoker. 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 She is able to climb more than 2 flights of stairs without any symptoms. She does not have any symptoms of chest pain or shortness of breath with or without activity. DIAGNOSTICS * EKG reveals sinus rhythm, heart rate 64, nonspecific T-wave abnormalities. * Laboratory reviewed, WBC 3.7, hemoglobin 15.6, platelets 209, sodium 141, potassium 3.9, BUN 15, serum crit 0.8, total bilirubin 1.7, AST 133, ALT 252. * Current home cardiac medications include amlodipine 5 mg nightly REVIEW OF SYSTEMS At the time of my exam: CONSTITUTIONAL: Denies fever or chills. CARDIOVASCULAR: Denies chest pain, shortness of breath, orthopnea, PND or palpitations. RESPIRATORY: Denies cough. GASTROINTESTINAL: Denies abdominal pain, diarrhea, constipation, nausea or vomiting. MUSCULOSKELETAL: Denies myalgias. NEUROLOGIC: Denies numbness, tingling, headacbe or weakness. ENDOCRINE: Denies fatigue, weight change, polydipsia or polyurina. GENITOURINARY: Denies burning, hematuria or urgency with micturation. HEMATOLOGIC: Denies history of anemia or bleeding. PHYSICAL EXAMINATION Blood pressure 152/92, heart rate 50, afebrile, saturations 96% on room air CONSTITUTIONAL: No apparent distress. HEENT: Head is normocephalic. Pupils are equal, round. Sclerae anicteric. Mucous membranes of the mouth are moist. No JVD. No carotid bruit. CHEST EXAMINATION: Lungs are clear to auscultation. No chest wall tenderness is noted on palpation or with deep breathing. HEART EXAMINATION: Regular rate and rhythm. S1, S2 heard. No murmurs, gallops or rub. ABDOMEN: Soft, nontender. Positive bowel sounds. EXTREMITIES: 2+ peripheral pulses, no lower extremity edema and no calf tenderness. NEUROLOGIC EXAMINATION: Patient is awake, alert and oriented x3. ASSESSMENT Cholelithiasis with planned robotic cholecystectomy History of hypertension Hypothyroidism PLAN Patient is at low risk for cardiovascular event during surgery. She is active wi thout any symptoms. Patient is able to perform >4 METs levels of activity and does have any acute cardiac conditions. There are no absolute contraindications to undergo surgery at this time. Please reach out with any further questions or concerns. Nurse practitioner note has been reviewed by physician. Signing provider agrees with the documented findings, assessment, and plan of care. Past Medical History Past Medical History: Hypertension, Thyroid Disorder History of Any Multi-Drug Resistant Organisms: None Reported Past Surgical History: Tubal Ligation Additional Past Surgical History / Comment(s): laminectomyx2, shoulder Past Anesthesia/Blood Transfusion Reactions: No Reported Reaction Smoking Status: Unknown if ever smoked - Past Family History Mother Family Medical History: No Reported History Additional Family Medical History / Comment(s): Mother is 86 and is healthy Father Family Medical History: Coronary Artery Disease (CAD), Diabetes Mellitus, Hypertension Additional Family Medical History / Comment(s): Father is 80 years old Medications and Allergies Home Medications Medication Instructions Recorded Confirmed Type Cetirizine HCl [Zyrtec] 10 mg PO DAILY PRN 05/10/22 05/16/22 History Levothyroxine Sodium [Synthroid] 200 mcg PO DAILY 05/10/22 05/16/22 History Pantoprazole [Protonix] 40 mg PO W/SUPPER 05/10/22 05/16/22 History Sertraline [Zoloft] 50 mg PO W/SUPPER 05/10/22 05/16/22 History Ondansetron Odt [Zofran ODT] 4 mg PO Q8HR PRN 05/16/22 05/16/22 History amLODIPine [Norvasc] 5 mg PO W/SUPPER 05/16/22 05/16/22 History Allergies Allergy/AdvReac Type Severity Reaction Status Date / Time erythromycin base Allergy Unknown Verified 05/16/22 15:01 Iodinated Contrast Media Allergy Unknown Verified 05/16/22 15:01 [Iodinated Contrast- Oral and IV Dye] Penicillins Allergy Unknown Verified 05/16/22 15:01 sulfamethoxazole Allergy Unknown Verified 05/16/22 15:01 [From Bactrim] trimethoprim [From Bactrim] Allergy Unknown Verified 05/16/22 15:01 Physical Exam Vitals: Vital Signs Temp Pulse Pulse Resp BP BP Pulse Ox 05/17/22 03:26 98.3 F 58 L 17 123/80 97 05/16/22 21:56 98.3 F 74 19 152/103 99 05/16/22 18:19 97.5 F L 62 16 152/104 99 05/16/22 17:00 97.7 F 61 16 136/100 97 05/16/22 16:05 97.6 F 63 18 130/90 98 05/16/22 15:10 80 18 144/116 97 05/16/22 14:08 98.0 F 80 20 145/105 97 05/16/22 12:41 97.7 F 77 20 143/108 97 Intake and Output 05/16/22 05/17/22 05/17/22 22:59 06:59 14:59 Other: Voiding Method Toilet # Voids 1 2 Weight 111.584 kg Results 05/16/22 13:27 05/16/22 13:27 Cardiac Enzymes 05/16/22 Range/Units 13:27 AST 133 H (14-36) U/L CBC 05/16/22 Range/Units 13:27 WBC 3.7 L (3.8-10.6) k/uL RBC 4.98 (3.80-5.40) m/uL Hgb 15.6 (11.4-16.0) gm/dL Hct 44.4 (34.0-46.0) % Plt Count 209 (150-450) k/uL Comprehensive Metabolic Panel 05/16/22 Range/Units 13:27 Sodium 141 (137-145) mmol/L Potassium 3.9 (3.5-5.1) mmol/L Chloride 105 (98-107) mmol/L Carbon Dioxide 22 (22-30) mmol/L BUN 15 (7-17) mg/dL Creatinine 0.87 (0.52-1.04) mg/dL Glucose 103 H (74-99) mg/dL Calcium 9.9 (8.4-10.2) mg/dL AST 133 H (14-36) U/L ALT 252 H (4-34) U/L Alkaline Phosphatase 115 (38-126) U/L Total Protein 8.0 (6.3-8.2) g/dL Albumin 5.0 (3.5-5.0) g/dL Current Medications Generic Name Dose Route Start Last Admin Trade Name Freq PRN Reason Stop Dose Admin Al Hydroxide/Mg Hydroxide 15 ml 05/16/22 14:23 Mag Hydrox/Al Hydrox/Simeth 30 Ml Cup PO Q6HR PRN Indigestion Amlodipine Besylate 5 mg 05/17/22 17:30 Amlodipine 5 Mg Tab PO W/SUPPER ASHLEY Enoxaparin Sodium 30 mg 05/17/22 09:00 Enoxaparin 30 Mg/0.3 Ml Syringe SQ DAILY ASHLEY Hydromorphone HCl 1 mg 05/16/22 14:23 05/16/22 15:05 Hydromorphone 1 Mg/Ml 1 Ml Syringe IVP 1 mg Q3HR PRN Administration Moderate Pain (Scale 4 to 6) Sodium Chloride 1,000 mls @ 130 mls/hr 05/16/22 14:30 05/17/22 05:53 Saline 0.9% IV 130 mls/hr .Q7H42M ASHLEY Administration Ketorolac Tromethamine 15 mg 05/16/22 18:00 05/17/22 05:56 Ketorolac 15 Mg/Ml 1 Ml Vial IVP 05/19/22 15:51 15 mg Q6HR ASHLEY Administration Levothyroxine Sodium 200 mcg 05/17/22 06:30 05/17/22 05:56 Levothyroxine 100 Mcg Tab PO 200 mcg DAILY@0630 ASHLEY Administration Loratadine 10 mg 05/16/22 22:07 Loratadine 10 Mg Tab PO DAILY PRN Allergy Symptoms Metoclopramide HCl 10 mg 05/16/22 15:23 05/16/22 23:51 Metoclopramide 5 Mg/Ml 2 Ml Vial IVP 10 mg Q6H PRN Administration Nausea Naloxone HCl 0.2 mg 05/16/22 14:23 Naloxone 0.4 Mg/Ml 1 Ml Vial IV Q2M PRN Opioid Reversal Ondansetron HCl 4 mg 05/16/22 14:23 Ondansetron 4 Mg/2 Ml Vial IVP Q8HR PRN Nausea And Vomiting Pantoprazole Sodium 40 mg 05/17/22 17:30 Pantoprazole 40 Mg Tablet PO W/SUPPER ASHLEY Scopolamine 1 patch 05/16/22 16:00 05/16/22 16:52 Scopolamine 1 Mg/72 Hr Patch TRANSDERM 1 patch Q72H ASHLEY Administration Sertraline HCl 50 mg 05/17/22 17:30 Sertraline 50 Mg Tab PO W/SUPPER ASHLEY Intake and Output 05/16/22 05/17/22 05/17/22 22:59 06:59 14:59 Other: Voiding Method Toilet # Voids 1 2 Weight 111.584 kg 05/16/22 13:27 05/16/22 13:27
[2022-05-17] MEDS ORDERED: PANTOPRAZOLE 40 MG/10 ML VIAL IV SCH (09:00)
[2022-05-17] MEDS: METOCLOPRAMIDE 5 MG/ML 2 ML VIAL IVP PRN (09:07)
[2022-05-17 10:18] LABS: African American GFR (CKD) 113.8 (60.0-200.0); Albumin 4.2 g/dL (3.8-4.9); Albumin/Globulin Ratio 1.75 (1.60-3.17); Anion Gap 10.1 mmol/L (10.00-18.00); BUN/Creat Ratio 17.14 Ratio (12.00-20.00); Carbon Dioxide 21.9 mmol/L (20.0-27.5); Globulin 2.4 g/dL (1.6-3.3); Non-African American GFR(CKD) 98.2 (60.0-200.0); Potassium 3.8 mmol/L (3.5-5.5); Total Bilirubin 1.1 mg/dL (0.30-1.20); Total Protein 6.6 g/dL (6.2-8.2)
--- NOTE | 2022-05-17 10:49 | CA ---
Transthoracic Echo Report Name: Rosario Rodriguez Age: 52 Gender: F : 1970 Exam Date: 05/17/2022 09:11 Exam Location: [place] [facility] Ht (in): 60 Wt (lb): 246 Ordering Physician: Henok Cole MD Attending/Referring Phys: Supervisor Receiving And Processing Deepthi Tom RDCS Procedure CPT: Indications: pre-Surgical Cardiac Hx: Technical Quality: Fair Contrast 1: Total Dose (mL): Contrast 2: Total Dose (mL): MEASUREMENTS (Male / Female) Normal Values 2D ECHO LV Diastolic Diameter PLAX 4.8 cm 4.2 - 5.9 / 3.9 - 5.3 cm LV Systolic Diameter PLAX 3.2 cm IVS Diastolic Thickness 1.3 cm 0.6 - 1.0 / 0.6 - 0.9 cm LVPW Diastolic Thickness 1.4 cm 0.6 - 1.0 / 0.6 - 0.9 cm LV Relative Wall Thickness 0.6 LA Volume 70.8 cm??? 18 - 58 / 22 - 52 cm??? M-MODE Aortic Root Diameter MM 3.7 cm MV E Point Septal Separation 0.5 cm AV Cusp Separation MM 2.2 cm DOPPLER MV Area PHT 3.5 cm??? Mitral E Point Velocity 73.5 cm/s Mitral A Point Velocity 31.2 cm/s Mitral E to A Ratio 2.4 MV Deceleration Time 217.7 ms TR Peak Velocity 201.7 cm/s TR Peak Gradient 16.3 mmHg Right Ventricular Systolic Press 21.3 mmHg FINDINGS Left Ventricle Left ventricular ejection fraction is estimated at 55-60 %. Mildly increased left ventricular wall thickness. Right Ventricle Normal right ventricular size and function. Right Atrium Normal right atrial size. Left Atrium Moderately increased left atrial volume. Mildly increased left atrial area. Mitral Valve Structurally normal mitral valve. Mild mitral regurgitation. Aortic Valve Trileaflet aortic valve. Tricuspid Valve Structurally normal tricuspid valve. Mild tricuspid regurgitation. Pulmonic Valve Structurally normal pulmonic valve. Pericardium Normal pericardium. Aorta Normal size aortic root and proximal ascending aorta. CONCLUSIONS 1. Normal ventricle size and systolic function 2. Mild mitral and tricuspid regurgitation Previewed by: Dr. Breanna Lincoln MD (Electronically Signed) Final Date: 17 May 2022 10:48
[2022-05-17] MEDS: ONDANSETRON 4 MG/2 ML VIAL IVP PRN (14:11)
[2022-05-17] MEDS ORDERED: PANTOPRAZOLE 40 MG TABLET PO SCH (17:30)
[2022-05-17] MEDS ORDERED: SERTRALINE 50 MG TAB PO SCH (17:30)
[2022-05-17] MEDS ORDERED: amLODIPine 5 MG TAB PO SCH (17:30)
[2022-05-17] MEDS ORDERED: SUCCINYLCHOLINE CHLORIDE 200 MG/10 ML VIAL IV ONE (18:37)
[2022-05-17] MEDS ORDERED: ROCURONIUM 10 MG/ML (5 ML VIAL) IV ONE (18:37)
[2022-05-17] MEDS ORDERED: GLYCOPYRROLATE 0.2 MG/ML 2 ML VIAL ONE (18:37)
[2022-05-17] MEDS ORDERED: PROPOFOL 10 MG/ML 20 ML VIAL IV ONE (18:37)
[2022-05-17] MEDS ORDERED: NEOSTIGMINE 1 MG/ML 10 ML VIAL ONE ×2 (18:37)
[2022-05-17] MEDS ORDERED: DEXAMETHASONE SOD PHOSPHATE 10 MG/ML 1 ML VIAL ONE (18:37)
[2022-05-17] MEDS ORDERED: ONDANSETRON 4 MG/2 ML VIAL ONE (18:37)
[2022-05-17] MEDS ORDERED: MIDAZOLAM 2 MG/2 ML VIAL ONE (18:37)
[2022-05-17] MEDS ORDERED: HEPARIN SODIUM,PORCINE 5,000 UNIT/ML 1 ML VIAL ONE (18:37)
[2022-05-17] MEDS ORDERED: HYDROmorphone (PF) 1 MG/ML ONE (18:37)
[2022-05-17] MEDS ORDERED: INDOCYANINE GREEN 25 MG VIAL IV ONE (18:37)
[2022-05-17] MEDS ORDERED: diphenhydrAMINE 50 MG/ML 1 ML VIAL ONE (18:37)
[2022-05-17] MEDS ORDERED: fentaNYL (PF) 50 MCG/ML 2 ML AMP ONE (18:37)
[2022-05-17] MEDS ORDERED: LIDOCAINE 2% INJ 20 MG/ML (2 ML VIAL) ONE (18:37)
[2022-05-17] MEDS ORDERED: IV FLUID CONTINUATION 800 ML IV ONE (18:41)
[2022-05-17] MEDS ORDERED: BUPIVACAINE (PF) 0.25% 30 ML VIAL SQ ONE ×2 (18:50→19:09)
[2022-05-17] MEDS ORDERED: LACTATED RINGERS 1,000 ML IV ONE (19:49)
--- NOTE | 2022-05-17 20:34 | P.OP ---
Date of Procedure: 05/17/22 Description of Procedure: SURGEON: PAVEL RAMOS MD PREOPERATIVE DIAGNOSES: 1. Gallstone pancreatitis with choledocholithiasis 2. Elevated liver enzymes 3. Morbid obesity excess calories, BMI 35.3 4. Hypertensive heart disease 5. Hypothyroidism 6. Depressive disorder 7. Gastroesophageal reflux disease POSTOPERATIVE DIAGNOSES: 1. Gallstone pancreatitis with choledocholithiasis 2. Elevated liver enzymes 3. Morbid obesity excess calories, BMI 35.3 4. Hypertensive heart disease 5. Hypothyroidism 6. Depressive disorder 7. Gastroesophageal reflux disease 8. Peritoneal adhesions, right upper quadrant 9. Mild hepatomegaly with fatty liver disease OPERATION: 1. Robotic-assisted da Loraine Xi laparoscopic cholecystectomy, multiport with FIREFLY 2. Robotic-assisted da Loraine Xi laparoscopic lysis of adhesions over 50% of the case ESTIMATED BLOOD LOSS: 20 mL. SPECIMENS REMOVED: Gallbladder. COMPLICATIONS: None. OPERATIVE FINDINGS: 1. Moderate scarring over entire gallbladder with peritoneal adhesions, pericholecystic with features of chronic cholecystitis 2. Common bile duct within normal limits 3. Mild hepatomegaly with fatty liver disease INDICATIONS: The patient is a 52-year-old female who presents with recent gallstone pancreatitis and choledocholithiasis and elevated liver enzymes. Robotic assisted laparoscopic approach was described. Benefits and risks of the procedure including but not limited to bleeding, infection, injury to the biliary tree was described. Informed consent was obtained. DESCRIPTION OF PROCEDURE: Patient was brought to the operating room, placed in supine position. After general induction, the abdomen had been prepped and draped in standard sterile fashion. The robotic da Loraine XI system was primed. After a timeout protocol was performed, the patient had been prepped and draped in standard sterile fashion. The patient was injected with indocyanine green. A 5 mm 0 degrees laparoscopic trocar entry was performed along the left upper quadrant. The abdomen insufflated to 15 mmHg pressure which was tolerated well. Diagnostic laparoscopy demonstrated no injury to bowel viscera or mesentery. The liver surface was unremarkable. Next, two 8 mm robotic ports were placed along the right upper abdomen. The camera 8-mm port was maintained along the epigastrium. Another 8 mm port was placed along the left upper abdominal wall after exchanging the 5 mm port. Please note that the ports were placed at least 10 to 15 cm away from the target anatomy of the gallbladder. The robot was docked along the left lateral abdomen. The patient was repositioned in reverse Trendelenburg position. Using a grasper for arm 3, a grasper for arm 4, including hook cautery for arm 1, the robotic system was docked and primed as described. Instruments were interchanged by the cook's assistant including hook cautery, Bovie cautery and clip appliers. I had sat at the console. The gallbladder was scarred with peritoneal adhesions. Lysis of adhesions was performed to free the gallbladder from the surrounding tissues incorporating more than 50% of the case. Next attention was brought to the infundibulum and cystic structures. The infundibulum and cystic duct were dissected free from surrounding tissues. The cystic duct was isolated. FIREFLY was used to identify the cystic artery and cystic structures. A critical view of safety was obtained. Large PLASTIC clips were used throughout the entire case. Using a clip programs assistant, 2 clips were placed at the junction of the infundibulum and cystic duct. The cystic duct was divided between clips. Next, the cystic artery was similarly clipped and cauterized. Electro-Bovie cautery was used to remove the gallbladder from the hepatic fossa. Hemostasis was checked and found to be adequate. The robot was undocked. I re-scrubbed into the case. Using a 10 mm Endo Catch bag via the left upper quadrant incision, the specimen was removed from the abdominal cavity. All pneumoperitoneum instruments were evacuated from the abdominal cavity. The incisions were reapproximated using 4-0 Monocryl in an interrupted subcuticular fashion. Fascial defects were less than 8 mm in size. Please note along the trocar sites, local anesthetic was placed as a field block prior to insertion of all instruments. Liquid glue was applied to the skin. At the end of the procedure needle, sponge, and instrument count had been verified correct by the rn surgical. The patient was transferred to postanesthesia care unit in stable condition.
[2022-05-17] MEDS ORDERED: diphenhydrAMINE 50 MG/ML 1 ML VIAL IVP PRN (20:35)
--- NOTE | 2022-05-17 20:35 | P.PN ---
Progress Note - Text Progress Note Date: 05/17/22 : Notified about date after surgery
[2022-05-17] MEDS ORDERED: METOCLOPRAMIDE 5 MG/ML 2 ML VIAL IVP ONE (20:43)
[2022-05-17] MEDS ORDERED: ACETAMINOPHEN IV (For NPO) 1,000 MG in EMPTY BAG 1 BAG IVPB ONE (21:00)
[2022-05-18] MEDS: ONDANSETRON 4 MG/2 ML VIAL IVP PRN (00:28)
[2022-05-18] MEDS: KETOROLAC 15 MG/ML 1 ML VIAL IVP SCH ×2 (00:28→05:55)
[2022-05-18] MEDS: DEXAMETHASONE SOD PHOSPHATE 4 MG/ML 1 ML VIAL IVP SCH ×2 (00:29→05:52)
[2022-05-18] MEDS: SODIUM CHLORIDE 0.9% 1,000 ML IV SCH (05:11)
[2022-05-18] MEDS: HYDROmorphone 1 MG/ML 1 ML SYRINGE IVP PRN (05:54)
[2022-05-18] MEDS: LEVOTHYROXINE 100 MCG TAB PO SCH (05:55)
[2022-05-18] MEDS: ENOXAPARIN 30 MG/0.3 ML SYRINGE SQ SCH (07:55)
[2022-05-18 09:05] LABS: African American GFR (CKD) 96.9 (60.0-200.0); Albumin 3.9 g/dL (3.8-4.9); Albumin/Globulin Ratio 1.77 (1.60-3.17); Anion Gap 8.4 mmol/L (10.00-18.00); BUN/Creat Ratio 11.5 Ratio (12.00-20.00); Blood Urea Nitrogen 9.2 mg/dL (9.0-27.0); Calcium 8.9 mg/dL (8.7-10.3); Carbon Dioxide 24.6 mmol/L (20.0-27.5); Globulin 2.2 g/dL (1.6-3.3); Non-African American GFR(CKD) 83.6 (60.0-200.0); Phosphorus 3.5 mg/dL (2.4-5.1); Potassium 4.1 mmol/L (3.5-5.5); Total Bilirubin 0.8 mg/dL (0.30-1.20); Total Protein 6.1 g/dL (6.2-8.2)
[2022-05-18 09:06] LABS: Magnesium 2.2 mg/dL (1.5-2.4)
[2022-05-18 09:22] VITALS: BP 119/74; PULSE 70; RESP 18; TEMP 97.6
--- NOTE | 2022-05-18 12:57 | P.DS ---
Providers Date of admission: 05/16/22 14:23 Expected date of discharge: 05/18/22 Attending physician: Eufemia Randle Consults: 05/16/22 13:39 Consult Physician Urgent Consulting Provider: Shay Paulson Consult Reason/Comments: surgical clearance Do you want consulting provider notified?: Already Contacted Primary care physician: Abel Ocampo Hospital Course: Discharge diagnosis 1. Gallstone pancreatitis with choledocholithiasis 2. Elevated liver enzymes 3. Morbid obesity excess calories, BMI 35.3 4. Hypertensive heart disease 5. Hypothyroidism 6. Depressive disorder 7. Gastroesophageal reflux disease 8. Peritoneal adhesions, right upper quadrant 9. Mild hepatomegaly with fatty liver disease Hospital course This is a 52-year-old female who presented with abdominal pain. She is found to have gallstone pancreatitis and choledocholithiasis with elevated liver enzymes. She is status post robotic-assisted cholecystectomy and lysis of adhesions. Patient tolerated surgery well. Her pain is controlled. She is up and ambulating. She is tolerating diet. She's afebrile. LFTs continue to trend downwards. She still for discharge. Physician Malted Milk Masher note has been reviewed by physician. Signing provider agrees with the documented findings, assessment, and plan of care. Patient Condition at Discharge: Stable Plan - Discharge Summary Discharge Rx Participant: No New Discharge Prescriptions: New Ibuprofen [Motrin] 600 mg PO Q8HR PRN #30 tab PRN Reason: Pain Acetaminophen Tab [Tylenol Tab] 1,000 mg PO Q6HR PRN #30 tablet PRN Reason: Pain Simethicone [Gas-X] 125 mg PO AC-TID PRN #20 capsule PRN Reason: Pain Continue Levothyroxine Sodium [Synthroid] 200 mcg PO DAILY Pantoprazole [Protonix] 40 mg PO W/SUPPER Sertraline [Zoloft] 50 mg PO W/SUPPER Cetirizine HCl [Zyrtec] 10 mg PO DAILY PRN PRN Reason: Allergy Symptoms amLODIPine [Norvasc] 5 mg PO W/SUPPER Ondansetron Odt [Zofran ODT] 4 mg PO Q8HR PRN PRN Reason: severe Nausea Discharge Medication List Cetirizine HCl [Zyrtec] 10 mg PO DAILY PRN 05/10/22 [History] Levothyroxine Sodium [Synthroid] 200 mcg PO DAILY 05/10/22 [History] Pantoprazole [Protonix] 40 mg PO W/SUPPER 05/10/22 [History] Sertraline [Zoloft] 50 mg PO W/SUPPER 05/10/22 [History] Ondansetron Odt [Zofran ODT] 4 mg PO Q8HR PRN 05/16/22 [History] amLODIPine [Norvasc] 5 mg PO W/SUPPER 05/16/22 [History] Acetaminophen Tab [Tylenol Tab] 1,000 mg PO Q6HR PRN #30 tablet 05/18/22 [Rx] Ibuprofen [Motrin] 600 mg PO Q8HR PRN #30 tab 05/18/22 [Rx] Simethicone [Gas-X] 125 mg PO AC-TID PRN #20 capsule 05/18/22 [Rx] Follow up Appointment(s)/Referral(s): Abel Ocampo DO [Primary Care Provider] - 1-2 days Eufemia Randle MD [STAFF PHYSICIAN] - 05/23/22 (TELEHEALTH ) Patient Instructions/Handouts: *Surgery [facility] - Managing Your Pain After Surgery Without Opioids, Low Fat Diet (DC), Laparoscopic Cholecystectomy (DC) Activity/Diet/Wound Care/Special Instructions: Recommend low-fat diet for the next 2 days. No lifting over 10 pounds in 2 weeks until Jun 01. May shower. No bath tub soaks for two weeks until Jun 01. Diet as tolerated. Use Tylenol, simethicone and ibuprofen or Aleve scheduled for the next 24-48 hours for best pain relief. Use ice along incisions for today to prevent swelling. Discharge Disposition: HOME SELF-CARE
== END 2022-05-18 13:52 | disposition home or self-care (01) ==
LOC: EC 12:40 → 6NMEDSUR 14:23
PROVIDERS: ADMIT Surgery Plastic and Reconstructive Surgery; ATTEND Surgery Plastic and Reconstructive Surgery
DX: K80.64 Calculus of gallbladder and bile duct with chronic cholecystitis without obstruction (principal); I11.9 Hypertensive heart disease without heart failure; E66.9 Obesity, unspecified; K21.9 Gastro-esophageal reflux disease without esophagitis; F32.A Depression, unspecified; E03.9 Hypothyroidism, unspecified; K66.0 Peritoneal adhesions (postprocedural) (postinfection); K76.0 Fatty (change of) liver, not elsewhere classified; I08.1 Rheumatic disorders of both mitral and tricuspid valves; Z79.890 Hormone replacement therapy; Z79.899 Other long term (current) drug therapy; Z88.0 Allergy status to penicillin; Z88.1 Allergy status to other antibiotic agents; Z88.2 Allergy status to sulfonamides; Z98.51 Tubal ligation status; Z83.3 Family history of diabetes mellitus; Z82.49 Family history of ischemic heart disease and other diseases of the circulatory system; Z68.35 Body mass index [BMI] 35.0-35.9, adult; Z91.041 Radiographic dye allergy status; Z32.02 Encounter for pregnancy test, result negative
CPT/HCPCS: 47562; S2900; 36415; 80053; 81001; 81025; 82150; 83690; 83735; 84100; 85025; 88304; 93005; 93306; 96361; 96365; 96366; 96367; 96375; 96376; 99285

== ENCOUNTER → 2022-05-25 | Outpatient (CLI) | payer BC ==
[2022-05-26 05:07] LABS: African American GFR (CKD) 96.9 (60.0-200.0); Albumin 4.1 g/dL (3.8-4.9); Albumin/Globulin Ratio 1.37 (1.60-3.17); Anion Gap 12.7 mmol/L (10.00-18.00); BUN/Creat Ratio 19.63 Ratio (12.00-20.00); Blood Urea Nitrogen 15.7 mg/dL (9.0-27.0); Calcium 9.5 mg/dL (8.7-10.3); Carbon Dioxide 24.3 mmol/L (20.0-27.5); Non-African American GFR(CKD) 83.6 (60.0-200.0); Total Bilirubin 0.5 mg/dL (0.30-1.20); Total Protein 7.1 g/dL (6.2-8.2)
== END | disposition home or self-care (01) ==
LOC: LABWHC1 13:58
PROVIDERS: ATTEND Surgery Plastic and Reconstructive Surgery
DX: K80.41 Calculus of bile duct with cholecystitis, unspecified, with obstruction (principal)
CPT/HCPCS: 36415; 80053